=== PATIENT | female | born 1930 | race Caucasian/White ===

== ENCOUNTER 2017-10-26 04:14 | Observation (INO) | payer MEDICARE ==
[~2017-10-26] VITALS: Ht 152.4 cm; Wt 50.0 kg
[2017-10-26] VITALS (15 sets, daily range): BP systolic 120–192; BP diastolic 57–86; PULSE 67–98; RESP 18–26; TEMP 98–98.3; O2SAT 90–98
[2017-10-26] MEDS ORDERED: VESI5TAB2 PO (04:21)
[2017-10-26] MEDS ORDERED: ASPI81CH6 PO (04:21)
[2017-10-26] MEDS ORDERED: ENAL5TAB PO (04:21)
[2017-10-26] MEDS ORDERED: RESP: ALBUTEROL 2.5 MG/IPRATROPIUM 0.5 MG NEB (SCH) INH ONE (04:30)
[2017-10-26 04:31] LABS: BASOPHIL # 0.1 TH/MM3 (0-0.2); BASOPHIL % 1.1 % (0.0-2.0); EOSINOPHIL # 1.2 TH/MM3 (0-0.4); EOSINOPHIL % 15.4 % (0.0-4.0); HEMATOCRIT 34.5 % (35.0-46.0); HEMOGLOBIN 11.3 GM/DL (11.6-15.3); LYMPH % 23.3 % (9.0-44.0); LYMPHOCYTE # 1.8 TH/MM3 (1.0-4.8); MEAN CELL VOLUME 95.4 FL (80.0-100.0); MEAN CORPUSCULAR HEMOGLOBIN 31.3 PG (27.0-34.0); MEAN CORPUSCULAR HGB CONC 32.8 % (32.0-36.0); MONO % 7.1 % (0.0-8.0); MONOCYTE # 0.5 TH/MM3 (0-0.9); NEUT % 53.1 % (16.0-70.0); PLATELET COUNT 218 TH/MM3 (150-450); RED BLOOD COUNT 3.62 MIL/MM3 (4.00-5.30); RED CELL DISTRIBUTION WIDTH 14.3 % (11.6-17.2); WHITE BLOOD COUNT 7.5 TH/MM3 (4.0-11.0)
--- NOTE | 2017-10-26 04:43 | PD ---
HPI Chief Complaint: Respiratory Symptoms Time Seen by Provider: 04:19 Travel History International Travel<30 days: No Contact w/Intl Traveler<30days: No Traveled to known affect area: No History of Present Illness HPI pt is having SOB wheezing is visiting from [facility] , feels shaky anxiety , was given and Neb in route, EMS found her to be desaturating to 90 % on RA . PT IS POOR HISTORAIN, SEEMS possible some dementia process involved, She keeps complaining she is cold. Denies dysuria no diarrhea, but seems not very clear about my questions or her answers PFSH Past Medical History COPD: Yes Hypertension: Yes Myocardial Infarction: Yes (15 yrs ago ) Tetanus Vaccination: < 5 Years Influenza Vaccination: Yes ?: Not Past Surgical History Other Surgery: Yes (polyps 15 yrs ago) Social History Alcohol Use: No Tobacco Use: No Substance Use: No Allergies-Medications (Allergen,Severity, Reaction): Coded Allergies: No Known Allergies (Verified Allergy, Unknown, 10/26/17) Reported Meds & Prescriptions Reported Meds & Active Scripts Active Reported Enalapril (Enalapril Maleate) 5 Mg Tab 5 Mg PO DAILY Aspirin Low Dose (Aspirin) 81 Mg Chew 81 Mg PO DAILY Vesicare (Solifenacin) 5 Mg Tab 5 Mg PO DAILY Review of Systems Except as stated in HPI: all other systems reviewed are Neg Respiratory: Positive: Shortness of Breath, Wheezing Physical Exam Narrative GENERAL: shaking and increased RR no significant resp distress noted talking in full sentences SKIN: Warm and dry. HEAD: Atraumatic. Normocephalic. EYES: Pupils equal and round. No scleral icterus. No injection or drainage. ENT: No nasal bleeding or discharge. Mucous membranes pink and moist. NECK: Trachea midline. No JVD. CARDIOVASCULAR: Regular rate and rhythm. RESPIRATORY: No accessory muscle use. very faint expiratory wheeze. moving air well. GASTROINTESTINAL: Abdomen soft, non-tender, nondistended. Hepatic and splenic margins not palpable. MUSCULOSKELETAL: Extremities without clubbing, cyanosis, or edema. No obvious deformities. NEUROLOGICAL: Awake and alert. No obvious cranial nerve deficits. Motor grossly within normal limits. Five out of 5 muscle strength in the arms and legs. Normal speech. PSYCHIATRIC: Appropriate mood and affect; insight and judgment normal. Data Data Last Documented VS Vital Signs Date Time Temp Pulse Resp B/P (MAP) Pulse Ox O2 Delivery O2 Flow Rate FiO2 10/26/17 05:35 90 Room Air 10/26/17 05:35 76 20 2.00 10/26/17 04:18 98.1 10/26/17 04:15 21 Orders Orders Electrocardiogram (10/26/17 04:19) Complete Blood Count With Diff (10/26/17 04:19) Comprehensive Metabolic Panel (10/26/17 04:19) Chest, Pa & Lat (10/26/17 04:19) Ecg Monitoring (10/26/17 04:19) Iv Access Insert/Monitor (10/26/17 04:19) Oximetry (10/26/17 04:19) Oxygen Administration (10/26/17 04:19) Albuterol-Ipratropium Neb (Duoneb Neb) (10/26/17 04:30) Sodium Chloride 0.9% Flush (Ns Flush) (10/26/17 04:30) Admit Order (Ed Use Only) (10/26/17 05:36) Levofloxacin 750 Mg Premix Inj (Levaquin (10/26/17 05:45) Prednisone (Deltasone) (10/26/17 05:45) Labs Laboratory Tests Test 10/26/17 04:20 White Blood Count 7.5 TH/MM3 Red Blood Count 3.62 MIL/MM3 Hemoglobin 11.3 GM/DL Hematocrit 34.5 % Mean Corpuscular Volume 95.4 FL Mean Corpuscular Hemoglobin 31.3 PG Mean Corpuscular Hemoglobin Concent 32.8 % Red Cell Distribution Width 14.3 % Platelet Count 218 TH/MM3 Mean Platelet Volume 9.0 FL Neutrophils (%) (Auto) 53.1 % Lymphocytes (%) (Auto) 23.3 % Monocytes (%) (Auto) 7.1 % Eosinophils (%) (Auto) 15.4 % Basophils (%) (Auto) 1.1 % Neutrophils # (Auto) 4.0 TH/MM3 Lymphocytes # (Auto) 1.8 TH/MM3 Monocytes # (Auto) 0.5 TH/MM3 Eosinophils # (Auto) 1.2 TH/MM3 Basophils # (Auto) 0.1 TH/MM3 CBC Comment DIFF FINAL Differential Comment Blood Urea Nitrogen 15 MG/DL Creatinine 0.87 MG/DL Random Glucose 82 MG/DL Total Protein 7.0 GM/DL Albumin 3.2 GM/DL Calcium Level 9.7 MG/DL Alkaline Phosphatase 72 U/L Aspartate Amino Transf (AST/SGOT) 24 U/L Alanine Aminotransferase (ALT/SGPT) 18 U/L Total Bilirubin 0.3 MG/DL Sodium Level 143 MEQ/L Potassium Level 4.1 MEQ/L Chloride Level 108 MEQ/L Carbon Dioxide Level 28.9 MEQ/L Anion Gap 6 MEQ/L Estimat Glomerular Filtration Rate 61 ML/MIN 25-Hydroxy Vitamin D Total 41.5 ng/ML MDM Medical Decision Making Medical Screen Exam Complete: Yes Emergency Medical Condition: Yes Differential Diagnosis COPD exacerbation vs URI --> to COPD exacerbation, viral illness influ strep pharyngitis . asthma reactive airway disease . other Narrative Course pt has mild COPD exacerbation either from severely cold environmental weather or URI needs steroid and levaqquin and admit until O2 sat and RR improve Diagnosis Primary Impression: Dyspnea Qualified Codes: R06.00 - Dyspnea, unspecified Additional Impression: COPD exacerbation Admitting Information Admitting Physician Requests: Observation Scripts Walker with Front Wheels (Walker with Front Wheels) 1 Mis Mis EA .ROUTE DIRECTED, #1 0 Refills Prov: Isis Machuca 10/27/17 Geoff Gomez MD Oct 26, 2017 04:43
[2017-10-26 04:45] LABS: ALBUMIN 3.2 GM/DL (3.4-5.0); ALT (GPT) 18 U/L (10-53); AST (GOT) 24 U/L (15-37); BICARBONATE 28.9 MEQ/L (21.0-32.0); BLOOD UREA NITROGEN 15 MG/DL (7-18); CALCIUM 9.7 MG/DL (8.5-10.1); CHLORIDE 108 MEQ/L (98-107); CREATININE 0.87 MG/DL (0.50-1.00); GLOMERULAR FILTRATION RATE 61 ML/MIN (>89); GLUCOSE,RANDOM 82 MG/DL (74-106); SODIUM (NA) 143 MEQ/L (136-145)
[2017-10-26 04:48] LABS: ALKALINE PHOSPHATASE 72 U/L (45-117); TOTAL BILIRUBIN ADULT 0.3 MG/DL (0.2-1.0)
--- NOTE | 2017-10-26 05:00 | RADRPT ---
EXAM DATE/TIME: 10/26/2017 04:28 [place] COMPARISON: No previous studies available for comparison. INDICATIONS : Short of breath. MEDICAL HISTORY : Chronic obstructive pulmonary disease. Myocardial infarction. Hypertension. SURGICAL HISTORY : None. ENCOUNTER: Initial ACUITY: 1 day PAIN SCORE: 0/10 LOCATION: Bilateral chest FINDINGS: PA and lateral views of the chest demonstrate the lungs to be symmetrically aerated without evidence of mass, infiltrate or effusion. Some chronic interstitial changes. The cardiomediastinal contours a re unremarkable. An age-indeterminate upper thoracic spine vertebral compression fractures at 2 level s. Diffuse degenerative changes. CONCLUSION: 1. Chronic interstitial changes. Darci Robbins Jr., MD on October 26, 2017 at 4:58 Board Certified Radiologist. This report was verified electronically.
[2017-10-26] MEDS ORDERED: BISACODYL 10 MG SUPP RECTAL PRN (05:45)
[2017-10-26] MEDS ORDERED: predniSONE 20 MG TAB PO ONE (05:45)
[2017-10-26] MEDS ORDERED: ACETAMINOPHEN/HYDROcodone 325 MG/5 MG TAB PO PRN (05:45)
[2017-10-26] MEDS ORDERED: SENNOSIDES 8.6 MG TAB PO PRN (05:45)
[2017-10-26] MEDS ORDERED: NALOXONE HCL 0.4 MG/ML AMP IV PUSH PRN (05:45)
[2017-10-26] MEDS ORDERED: ONDANSETRON HCL 4 MG/2 ML VIAL IVP PRN (05:45)
[2017-10-26] MEDS ORDERED: MAGNESIUM HYDROXIDE SUSP 30 ML CUP PO PRN (05:45)
[2017-10-26] MEDS ORDERED: LEVOFLOXACIN 750 MG PREMIX INJ 150 ML IV ONE (05:45)
[2017-10-26] MEDS ORDERED: LACTULOSE SYRUP 20 GM/30 ML CUP PO PRN (05:45)
[2017-10-26] MEDS ORDERED: ACETAMINOPHEN 325 MG TAB PO PRN (05:45)
[2017-10-26] MEDS ORDERED: methylPREDNISolone SOD SUCC 40 MG/1 ML VIAL IV PUSH SCH (06:00)
[2017-10-26] MEDS: ENOXAPARIN SODIUM 40 MG/0.4 ML SYRINGE SQ SCH (06:04)
[2017-10-26 06:11] LABS: BILIRUBIN, URINE NEG (NEG); BLOOD, URINE NEG (NEG); GLUCOSE,URINE NEG (NEG); KETONE, URINE NEG (NEG); MUCUS URINE FEW /lpf (OCC); NITRITE,URINE NEG (NEG); URINE COLOR LIGHT-YELLOW (YELLW/STRAW); URINE LEUKOCYTE ESTERASE NEG (NEG)
--- NOTE | 2017-10-26 06:21 | HHI.HP ---
[facility]-Staff Admission Diagnosis COPD exacerbation Diagnoses: Travel History International Travel<30 Days: No Contact w/Intl Traveler <30 Da: No Traveled to Known Affected Are: No History of Present Illness 87-year-old female with a past medical history significant for hypertension and possibly COPD (patient states she may have previously been diagnosed with COPD) presents to the emergency department with increasing shortness of breath. The patient reports that approximately one week ago she caught a cold. She endorses subjective fever/chills. She has an unrelenting nonproductive cough. The patient reports that she has just not been able to catch her breath and came to the emergency department for further evaluation. She had a similar episode approximately one and a half years ago requiring hospitalization and she was discharged with nebulizer treatments. No leukocytosis. Afebrile. Respiratory rate 26 on arrival. Oxygen saturation decreased to 90% when patient placed on room air. Chest x-ray showed chronic interstitial changes without acute process. Review of Systems Subjective fever/chills Denies blurry vision, otorrhea, rhinorrhea Denies sore throat, positive cough No chest pain, palpitations, Positive shortness of breath No abdominal pain Denies constipation/diarrhea/nausea/vomiting Denies muscle pain/weakness No rashes Past Family Social History Past Medical History ?COPD HTN Past Surgical History None Reported Medications Reported Meds & Active Scripts Active Reported Enalapril (Enalapril Maleate) 5 Mg Tab 5 Mg PO DAILY Aspirin Low Dose (Aspirin) 81 Mg Chew 81 Mg PO DAILY Vesicare (Solifenacin) 5 Mg Tab 5 Mg PO DAILY Allergies: Coded Allergies: No Known Allergies (Verified Allergy, Unknown, 10/26/17) Family History No family history of DM/CAD Social History Never smoker. No EtOH/illicit drugs. Physical Exam Vital Signs Vital Signs Date Time Temp Pulse Resp B/P (MAP) Pulse Ox O2 Delivery O2 Flow Rate FiO2 10/26/17 05:35 90 Room Air 10/26/17 05:35 76 20 162/69 (100) 98 Nasal Cannula 2.00 10/26/17 04:41 96 Nasal Cannula 1.00 1/4/18 04:21 98 Nasal Cannula 2.00 10/26/17 04:21 98 Nasal Cannula 2.00 10/26/17 04:18 98.1 75 26 192/86 (121) 97 Room Air 10/26/17 04:15 96 21 Physical Exam GENERAL: female lying in bed SKIN: No rashes, ecchymoses or lesions. Cool and dry. HEAD: Atraumatic. Normocephalic. No temporal or scalp tenderness. EYES: Pupils equal round and reactive. Extraocular motions intact. No scleral icterus. No injection or drainage. ENT: Nose without bleeding, purulent drainage or septal hematoma. Throat without erythema, tonsillar hypertrophy or exudate. Uvula midline. Airway patent. NECK: Trachea midline. No JVD or lymphadenopathy. Supple, nontender, no meningeal signs. CARDIOVASCULAR: Regular rate and rhythm without murmurs, gallops, or rubs. RESPIRATORY: Wheezing throughout. GASTROINTESTINAL: Abdomen soft, non-tender, nondistended. No hepato-splenomegaly , or palpable masses. No guarding. MUSCULOSKELETAL: Extremities without clubbing, cyanosis, or edema. No joint tenderness, effusion, or edema noted. No calf tenderness. NEUROLOGICAL: Awake and alert. Cranial nerves II through XII intact. Motor and sensory grossly within normal limits. Normal speech. Laboratory Laboratory Tests Test 10/26/17 04:20 White Blood Count 7.5 Red Blood Count 3.62 Hemoglobin 11.3 Hematocrit 34.5 Mean Corpuscular Volume 95.4 Mean Corpuscular Hemoglobin 31.3 Mean Corpuscular Hemoglobin Concent 32.8 Red Cell Distribution Width 14.3 Platelet Count 218 Mean Platelet Volume 9.0 Neutrophils (%) (Auto) 53.1 Lymphocytes (%) (Auto) 23.3 Monocytes (%) (Auto) 7.1 Eosinophils (%) (Auto) 15.4 Basophils (%) (Auto) 1.1 Neutrophils # (Auto) 4.0 Lymphocytes # (Auto) 1.8 Monocytes # (Auto) 0.5 Eosinophils # (Auto) 1.2 Basophils # (Auto) 0.1 CBC Comment DIFF FINAL Differential Comment Blood Urea Nitrogen 15 Creatinine 0.87 Random Glucose 82 Total Protein 7.0 Albumin 3.2 Calcium Level 9.7 Alkaline Phosphatase 72 Aspartate Amino Transf (AST/SGOT) 24 Alanine Aminotransferase (ALT/SGPT) 18 Total Bilirubin 0.3 Sodium Level 143 Potassium Level 4.1 Chloride Level 108 Carbon Dioxide Level 28.9 Anion Gap 6 Estimat Glomerular Filtration Rate 61 Result Diagram: 10/26/1741910/26/17419 Caprini VTE Risk Assessment Caprini VTE Risk Assessment: Mod/High Risk (score >= 2) Caprini Risk Assessment Model Point Value = 1 Point Value = 2 Point Value = 3 Point Value = 5 Age 41-60 Minor surgery BMI > 25 kg/m2 Swollen legs Varicose veins or History of unexplained or recurrent spontaneous Oral contraceptives or hormone replacement Sepsis (< 1 month) Serious lung disease, including pneumonia (< 1 month) Abnormal pulmonary function Acute myocardial infarction Congestive heart failure (< 1 month) History of inflammatory bowel disease Medical patient at bed rest Age 61-74 Arthroscopic surgery Major open surgery (> 45 min) Laparoscopic surgery (> 45 min) Malignancy Confined to bed (> 72 hours) Immobilizing plaster cast Central venous access Age >= 75 History of VTE Family history of VTE Factor V Leiden Prothrombin [id number] Lupus anticoagulant Anticardiolipin antibodies Elevated serum homocysteine Heparin-induced thrombocytopenia Other congenital or acquired thrombophilia Stroke (< 1 month) Elective arthroplasty Hip, pelvis, or leg fracture Acute spinal cord injury (< 1 month) Prophylaxis Regimen Total Risk Factor Score Risk Level Prophylaxis Regimen 0-1 Low Early ambulation 2 Moderate Order ONE of the following: *Sequential Compression Device (SCD) *Heparin 5000 units SQ BID 3-4 Higher Order ONE of the following medications: *Heparin 5000 units SQ TID *Enoxaparin/Lovenox 40 mg SQ daily (WT < 150 kg, CrCl > 30 mL/min) *Enoxaparin/Lovenox 30 mg SQ daily (WT < 150 kg, CrCl > 10-29 mL/min) *Enoxaparin/Lovenox 30 mg SQ BID (WT < 150 kg, CrCl > 30 mL/min) AND/OR *Sequential Compression Device (SCD) 5 or more Highest Order ONE of the following medications: *Heparin 5000 units SQ TID (Preferred with Epidurals) *Enoxaparin/Lovenox 40 mg SQ daily (WT < 150 kg, CrCl > 30 mL/min) *Enoxaparin/Lovenox 30 mg SQ daily (WT < 150 kg, CrCl > 10-29 mL/min) *Enoxaparin/Lovenox 30 mg SQ BID (WT < 150 kg, CrCl > 30 mL/min) AND *Sequential Compression Device (SCD) Assessment and Plan Assessment and Plan Assessment/Plan: 1. COPD exacerbation Patient with increased cough and subjective fever/chills Chest x-ray significant for chronic interstitial changes, images reviewed by me Kamala wolf Solu-Medrol Submental oxygen when necessary 2. HTN Continue home Lisinopril FEN Heart healthy diet Electrolytes: monitor and replete prn Yolette Egan MD Oct 26, 2017 06:21
[2017-10-26] MEDS: RESP: ALBUTEROL 2.5 MG/IPRATROPIUM 0.5 MG NEB (SCH) NEB ×4 (08:16→19:34)
[2017-10-26] MEDS: SODIUM CHLORIDE 0.9% FLUSH 10 ML FLUSH IV FLUSH SCH ×2 (09:00→22:20)
[2017-10-26] MEDS ORDERED: NON-FORMULARY DRUG (Solifenacin (Vesicare) 5 MG) PO SCH (09:00)
--- NOTE | 2017-10-26 10:01 | HHI.PR ---
Subjective Remarks Follow up on patient with dyspnea. Patient seen and examined. Patient reports her breathing is better now. She denies any previous history of COPD diagnosis. States she's never smoked in her life. She reports that today after she developed a cold with nonproductive cough and diffuse body aches. She denies any fevers at home but states she felt cold all the time. She denies any associated headache, ear pain, rhinorrhea, chest pain, nausea, vomiting or abdominal pain. She states she did have shortness of breath with cough exacerbations. She does not use oxygen at home. She denies any history of allergies. Objective Vitals Vital Signs Date Time Temp Pulse Resp B/P (MAP) Pulse Ox O2 Delivery O2 Flow Rate FiO2 10/26/17 08:29 98.1 72 18 147/67 (93) 98 10/26/17 08:16 97 Nasal Cannula 1.00 10/26/17 07:02 71 18 142/64 (90) 98 10/26/17 06:11 10/26/17 06:11 67 18 155/75 (101) 98 Nasal Cannula 2.00 10/26/17 05:35 90 Room Air 10/26/17 05:35 76 20 162/69 (100) 98 Nasal Cannula 2.00 10/26/17 04:41 96 Nasal Cannula 1.00 10/26/17 04:21 98 Nasal Cannula 2.00 10/26/17 04:21 98 Nasal Cannula 2.00 10/26/17 04:18 98.1 75 26 192/86 (121) 97 Room Air 10/26/17 04:15 96 21 I/O 10/25/17 10/25/17 10/25/17 10/26/17 10/26/17 10/26/17 07:00 15:00 23:00 07:00 15:00 23:00 Intake Total 150 ml Balance 150 ml Intake IV Total 150 ml Result Diagram: 10/26/1741910/26/17419 Imaging Last Impressions Chest X-Ray 10/26/17 0419 Signed Impressions: Service Date/Time: October 04:28 - CONCLUSION: 1. Chronic interstitial changes. Darci Robbins Jr., MD Objective Remarks GENERAL: Well-developed well-nourished elderly female lying in bed. Awake and alert. Sitting up in bed eating breakfast. SKIN: Cool and dry. HEAD: Atraumatic. Normocephalic. EYES: Extraocular motions intact. No scleral icterus. No injection or drainage. ENT: Nose without bleeding or purulent drainage. Airway patent. MMM. NECK: Trachea midline. CARDIOVASCULAR: Tachycardic with regular rhythm without murmurs, gallops, or rubs. RESPIRATORY: Tight air entry. Mild expiratory wheezing appreciated. GASTROINTESTINAL: Abdomen soft, non-tender, nondistended. No hepato-splenomegaly , or palpable masses. No guarding. MUSCULOSKELETAL: Extremities without clubbing, cyanosis, or edema. No calf tenderness. NEUROLOGICAL: Awake and alert. Able to move all externally spontaneously. Nonfocal. Normal speech. Medications and IVs Current Medications Medications (Trade) Dose Ordered Sig/Jesica Route Start Time Stop Time Status Last Admin (NS Flush) 2 ml UNSCH PRN IVF 10/26/17 04:30 (NS Flush) 2 ml BID IV FLUSH 10/26/17 09:00 (Zofran Inj) 4 mg Q6H PRN IVP 10/26/17 05:45 (Lovenox Inj) 40 mg Q24H SQ 10/26/17 05:45 10/26/17 06:04 (Tylenol) 650 mg Q6H PRN PO 10/26/17 05:45 ([place] 5-325 Mg) 1 tab Q4H PRN PO 10/26/17 05:45 (Narcan Inj) 0.4 mg UNSCH PRN IV PUSH 10/26/17 05:45 (Karely-Colace) 1 tab BID PO 10/26/17 09:00 (Milk Of Magnesia Liq) 30 ml Q12H PRN PO 10/26/17 05:45 (Senokot) 17.2 mg Q12H PRN PO 10/26/17 05:45 (Dulcolax Supp) 10 mg DAILY PRN RECTAL 10/26/17 05:45 (Lactulose Liq) 30 ml DAILY PRN PO 10/26/17 05:45 (SoluMEDROL INJ) 40 mg Q6HR IV PUSH 10/26/17 06:00 10/26/17 06:04 (Symbicort 160-4.5 Mcg Inh) 2 puff Q12HR INH 10/26/17 09:00 (Duoneb Neb) 1 ampule Q4HR WHILE AWAKE NEB NEB 10/26/17 08:00 10/26/17 08:16 (Duoneb Neb) 1 ampule Q2HR NEB PRN NEB 10/26/17 05:45 (Aspirin Chew) 81 mg DAILY PO 10/26/17 09:00 (Vasotec) 5 mg DAILY PO 10/26/17 09:00 Levofloxacin/ Dextrose 150 ml @ 100 mls/hr Q24H IV 10/27/17 09:00 (Tessalon) 100 mg TID PO 10/26/17 09:00 (Mucinex Er) 600 mg BID PO 10/26/17 09:00 (Detrol La) 2 mg DAILY PO 10/26/17 09:00 A/P Assessment and Plan 87yr old female with PMHX of HTN who presents to [facility] with complaints of nonproductive cough and dyspnea. URI with nonproductive cough and dyspnea, improving CXR reveals chronic interstitial changes, no acute process Continue on Levaquin, change to oral. Continue on IV methylprednisolone, changed to every 8 hour dosing, Likely taper to oral steroids tomorrow. Continue on scheduled DuoNeb's every 4 hours while awake Continue on Mucinex ER 600mg BID and Tessalon 100mg TID Influenza antigen ordered Incentive spirometry at bedside, encourage use Continue to monitor respiratory status - patient 91% on RA, 96% on 2L Patient may need a home oxygen walk test prior discharge PT eval/tx HTN Adequately controlled Continue on Vasotec 5 mg daily Monitor BP and adjust treatment accordingly Overactive bladder Continue patient on home dose of Vesicare Incidental finding of previous thoracic spine compression fractures on chest x- ray Patient has no complaints of back pain DVT prophylaxis Lovenox subcutaneous Discharge Planning Pending clinical improvement, likely discharge tomorrow Attending Statement patient was seen and examined today. 87 y/o female with questionable history of asthma presented to ER with worsening sob and wheezing. feels better today. continue with IV steroids and neb treatment. PT consulted. rest of assessment and plan as noted above. Isis Machuca Oct 26, 2017 10:01 Alonzo Carmona MD Oct 26, 2017 10:58
[2017-10-26] MEDS: TOLTERODINE TARTRATE 2 MG CAP LA PO SCH (10:54)
[2017-10-26] MEDS: BENZONATATE 100 MG CAP PO SCH ×3 (10:54→18:39)
[2017-10-26] MEDS: ASPIRIN 81 MG CHEW TAB PO SCH (10:55)
[2017-10-26] MEDS: guaiFENesin E.R. 600 MG TAB PO SCH ×2 (10:55→22:20)
[2017-10-26] MEDS: ENALAPRIL MALEATE 5 MG TAB PO SCH (10:55)
[2017-10-26] MEDS: DOCUSATE SODIUM 50 MG/SENNA 8.6 MG TAB PO SCH ×2 (10:56→22:20)
[2017-10-26] MEDS: BUDESONIDE-FORMOTEROL 160/4.5 MCG INHALER INH SCH ×2 (12:06→22:20)
[2017-10-26] MEDS: methylPREDNISolone SOD SUCC 40 MG/1 ML VIAL IV PUSH SCH ×2 (16:20→22:21)
[2017-10-27] VITALS (11 sets, daily range): BP systolic 81–160; BP diastolic 48–70; PULSE 63–119; RESP 17–20; TEMP 97.8–99.2; O2SAT 93–98
[2017-10-27] MEDS: methylPREDNISolone SOD SUCC 40 MG/1 ML VIAL IV PUSH SCH ×3 (05:48→22:41)
[2017-10-27] MEDS: ENOXAPARIN SODIUM 40 MG/0.4 ML SYRINGE SQ SCH (05:49)
[2017-10-27] MEDS: SODIUM CHLORIDE 0.9% FLUSH 10 ML FLUSH IVF PRN (05:49)
[2017-10-27] MEDS: RESP: ALBUTEROL 2.5 MG/IPRATROPIUM 0.5 MG NEB (PRN) NEB (06:01)
[2017-10-27 07:33] LABS: AUTOMATED NEUTROPHIL # 6.9 TH/MM3 (1.8-7.7); BASOPHIL % 0.1 % (0.0-2.0); HEMATOCRIT 34.6 % (35.0-46.0); HEMOGLOBIN 11.5 GM/DL (11.6-15.3); LYMPH % 8.2 % (9.0-44.0); LYMPHOCYTE # 0.6 TH/MM3 (1.0-4.8); MEAN CELL VOLUME 94.9 FL (80.0-100.0); MEAN CORPUSCULAR HEMOGLOBIN 31.5 PG (27.0-34.0); MEAN CORPUSCULAR HGB CONC 33.2 % (32.0-36.0); MEAN PLATELET VOLUME 10.1 FL (7.0-11.0); MONO % 2.1 % (0.0-8.0); MONOCYTE # 0.2 TH/MM3 (0-0.9); NEUT % 89.6 % (16.0-70.0); PLATELET COUNT 233 TH/MM3 (150-450); RED BLOOD COUNT 3.64 MIL/MM3 (4.00-5.30); RED CELL DISTRIBUTION WIDTH 14.3 % (11.6-17.2); WHITE BLOOD COUNT 7.7 TH/MM3 (4.0-11.0)
[2017-10-27] MEDS ORDERED: WALKER WHEELS/F1 MIS (07:35)
[2017-10-27] MEDS: RESP: ALBUTEROL 2.5 MG/IPRATROPIUM 0.5 MG NEB (SCH) NEB ×4 (07:39→20:29)
--- NOTE | 2017-10-27 07:40 | HHI.FF ---
Face to Face Verification Diagnosis: (1) Impaired mobility and activities of daily living (2) Interstitial lung disease (3) Dyspnea Physical Therapy Order: Evaluate and Treat, Improve ambulation, Strength and gait training I have seen patient Virginia Cuba on 10/27/17. My clinical findings support the need for the requested home health care services because: Patient has SOB Deconditioned w/ increased weakness Limited ability to care for self High risk of falls I certify that my clinical findings support that this patient is homebound because: Unsteady gait/balance Unsafe to leave home unassisted Unable to use public transportation Isis Machuca Oct 27, 2017 07:40
[2017-10-27 07:49] LABS: BICARBONATE 28.2 MEQ/L (21.0-32.0); CALCIUM 9.9 MG/DL (8.5-10.1); CREATININE 1.12 MG/DL (0.50-1.00)
[2017-10-27] MEDS: ENALAPRIL MALEATE 5 MG TAB PO SCH (08:28)
[2017-10-27] MEDS: guaiFENesin E.R. 600 MG TAB PO SCH ×2 (08:28→22:41)
[2017-10-27] MEDS: DOCUSATE SODIUM 50 MG/SENNA 8.6 MG TAB PO SCH ×2 (08:28→22:41)
[2017-10-27] MEDS: BENZONATATE 100 MG CAP PO SCH ×3 (08:28→16:22)
[2017-10-27] MEDS: TOLTERODINE TARTRATE 2 MG CAP LA PO SCH (08:28)
[2017-10-27] MEDS: LEVOFLOXACIN 750 MG TAB PO SCH (08:28)
[2017-10-27] MEDS: ASPIRIN 81 MG CHEW TAB PO SCH (08:29)
[2017-10-27] MEDS: BUDESONIDE-FORMOTEROL 160/4.5 MCG INHALER INH SCH ×2 (08:29→22:43)
[2017-10-27] MEDS: SODIUM CHLORIDE 0.9% FLUSH 10 ML FLUSH IV FLUSH SCH ×2 (08:32→22:40)
[2017-10-27] MEDS ORDERED: LEVOFLOXACIN 750 MG PREMIX INJ 150 ML IV SCH (09:00)
--- NOTE | 2017-10-27 13:04 | HHI.PR ---
Subjective Remarks in no acute distress. however still with sob and cough. on oxygen via [place] afebrile. Objective Vitals Vital Signs Date Time Temp Pulse Resp B/P (MAP) Pulse Ox O2 Delivery O2 Flow Rate FiO2 10/27/17 12:02 99.2 119 18 81/48 (59) 93 10/27/17 08:13 97.9 95 20 139/69 (92) 96 10/27/17 08:00 83 10/27/17 07:40 98 Nasal Cannula 2.00 10/27/17 06:01 98 Nasal Cannula 2.00 10/27/17 04:41 98.0 82 18 160/70 (100) 94 10/27/17 04:35 63 10/27/17 00:05 75 10/26/17 21:18 98.0 92 18 120/57 (78) 91 10/26/17 20:00 98 10/26/17 19:35 94 21 10/26/17 15:54 98.0 75 18 145/65 (91) 96 I/O 10/26/17 10/26/17 10/26/17 10/27/17 10/27/17 10/27/17 07:00 15:00 23:00 07:00 15:00 23:00 Intake Total 150 ml 240 ml 120 ml Balance 150 ml 240 ml 120 ml Intake Oral 240 ml 120 ml IV Total 150 ml # Voids 1 # Bowel Movements 1 Result Diagram: 10/27/17 0637 10/27/17 0637 Imaging Last Impressions Chest X-Ray 10/26/17 0419 Signed Impressions: Service Date/Time: October 04:28 - CONCLUSION: 1. Chronic interstitial changes. Darci Robbins Jr., MD Objective Remarks GENERAL: elderly female, in no apparent distress. CARDIOVASCULAR: Regular rate and regular rhythm without murmurs, gallops, or rubs. RESPIRATORY: bilateral wheezing. GASTROINTESTINAL: Abdomen soft, non-tender, nondistended. Normal, active bowel sounds MUSCULOSKELETAL: Extremities without clubbing, cyanosis, or edema. NEURO: Alert & Oriented x4 to person, place, time, situation. Moves all ext x4 Medications and IVs Inpatient Medications Acetaminophen (Tylenol) 650 mg Q6H PRN PO headache/fever/pain1-2; Start at 05:45 Acetaminophen/ Hydrocodone Bitart ([place] 5-325 Mg) 1 tab Q4H PRN PO PAIN SCALE 3 TO 10; Start 10/26/17 at 05:45 Albuterol/ Ipratropium (Duoneb Neb) 1 ampule Q2HR NEB PRN NEB SOB/wheezing Last administered on 10/27/17 06:01; Start 10/26/17 at 05:45 Aspirin (Aspirin Chew) 81 mg DAILY PO Last administered on 10/27/17at 08:29; Start 10/26/17 at 09:00 Benzonatate (Tessalon) 100 mg TID PO Last administered on 10/27/17 08:28; Start 10/26/17 at 09:00 Bisacodyl (Dulcolax Supp) 10 mg DAILY PRN RECTAL SEVERE CONSITIPATION; Start at 05:45 Budesonide/ Formoterol Fumarate (Symbicort 160-4.5 Mcg Inh) 2 puff Q12HR INH Last administered on 10/27/17at 08:29; Start 10/26/17 at 09:00 Enalapril Maleate (Vasotec) 5 mg DAILY PO Last administered on 10/27/17 08:28; Start 10/26/17 at 09:00 Enoxaparin Sodium (Lovenox Inj) 40 mg Q24H SQ Last administered on 10/27/17at 05: 49; Start 10/26/17 at 05:45 Guaifenesin (Mucinex Er) 600 mg BID PO Last administered on 10/27/17 08:28; Start 10/26/17 at 09:00 Lactulose (Lactulose Liq) 30 ml DAILY PRN PO SEVERE CONSITIPATION; Start at 05:45 Levofloxacin (Levaquin) 750 mg Q48H PO Last administered on 10/27/17at 08:28; Start 10/27/17 at 09:00 Levofloxacin/ Dextrose 150 ml @ 100 mls/hr Q24H IV ; Start 10/27/17 at 09:00; Stop 10/27/17 at 09:00; Status DC Magnesium Hydroxide (Milk Of Magnesia Liq) 30 ml Q12H PRN PO Mild constipation ; Start 10/26/17 at 05:45 Methylprednisolone Sodium Succinate (SoluMEDROL INJ) 40 mg Q8HR IV PUSH Last administered on 10/27/17at 05:48; Start 10/26/17 at 14:00 Naloxone HCl (Narcan Inj) 0.4 mg UNSCH PRN IV PUSH SEE LABEL COMMENTS; Start at 05:45 Ondansetron HCl (Zofran Inj) 4 mg Q6H PRN IVP NAUSEA OR VOMITING; Start at 05:45 Prednisone (Deltasone) 40 mg ONCE ONCE PO ; Start 10/26/17 at 05:45; Stop at 05:45; Status DC Senna/Docusate Sodium (Karely-Colace) 1 tab BID PO Last administered on 10/27/17at 08:28; Start 10/26/17 at 09:00 Sennosides (Senokot) 17.2 mg Q12H PRN PO Moderate constipation; Start 10/26/17 at 05:45 Sodium Chloride (NS Flush) 2 ml BID IV FLUSH Last administered on 10/27/17at 08: 32; Start 10/26/17 at 09:00 Tolterodine Tartrate (Detrol La) 2 mg DAILY PO Last administered on 10/27/17at 08 :28; Start 10/26/17 at 09:00 A/P Assessment and Plan A/P URI with nonproductive cough and dyspnea, improving CXR reveals chronic interstitial changes, no acute process Continue on Levaquin, changed to oral. will keep on IV methylprednisolone, Likely taper to oral steroids tomorrow. Continue on scheduled DuoNeb's every 4 hours while awake Continue on Mucinex ER 600mg BID and Tessalon 100mg TID Influenza antigen negative. Incentive spirometry at bedside, encourage use Continue to monitor respiratory status - patient 91% on RA, 96% on 2L Patient may need a home oxygen walk test prior discharge PT eval/tx HTN Adequately controlled Continue on Vasotec 5 mg daily Monitor BP and adjust treatment accordingly Overactive bladder Continue patient on home dose of Vesicare Incidental finding of previous thoracic spine compression fractures on chest x- ray Patient has no complaints of back pain DVT prophylaxis Lovenox subcutaneous Discharge Planning dc home within the next one-two days if clinically improves. walk test before discharge. will have [facility]. Alonzo Carmona MD Oct 27, 2017 13:04
--- NOTE | 2017-10-27 23:22 | EKG ---
Date Performed: 10/26/2017 Time Performed: 04:18:41 PTAGE: 87 years EKG: Sinus rhythm INFERIOR MYOCARDIAL INFARCTION ABNORMAL ECG NO PREVIOUS TRACING DOCTOR: Safia Fragoso Interpretating Date/Time 10/27/2017 23:20:28
[2017-10-28] VITALS (8 sets, daily range): BP systolic 122–166; BP diastolic 58–77; PULSE 68–97; RESP 17–20; TEMP 96–98.1; O2SAT 97–99
[2017-10-28] MEDS: methylPREDNISolone SOD SUCC 40 MG/1 ML VIAL IV PUSH SCH ×3 (06:29→23:23)
[2017-10-28] MEDS: ENOXAPARIN SODIUM 30 MG/0.3 ML SYRINGE SQ SCH (06:29)
[2017-10-28] MEDS: SODIUM CHLORIDE 0.9% FLUSH 10 ML FLUSH IV FLUSH SCH ×2 (07:50→21:00)
[2017-10-28] MEDS: guaiFENesin E.R. 600 MG TAB PO SCH ×2 (07:52→23:28)
[2017-10-28] MEDS: DOCUSATE SODIUM 50 MG/SENNA 8.6 MG TAB PO SCH ×2 (07:52→23:28)
[2017-10-28] MEDS: ASPIRIN 81 MG CHEW TAB PO SCH (07:52)
[2017-10-28] MEDS: BENZONATATE 100 MG CAP PO SCH ×3 (07:52→18:16)
[2017-10-28] MEDS: ENALAPRIL MALEATE 5 MG TAB PO SCH (07:53)
[2017-10-28] MEDS: BUDESONIDE-FORMOTEROL 160/4.5 MCG INHALER INH SCH ×2 (08:07→23:28)
[2017-10-28] MEDS: RESP: ALBUTEROL 2.5 MG/IPRATROPIUM 0.5 MG NEB (SCH) NEB ×4 (08:17→19:43)
[2017-10-28] MEDS: TOLTERODINE TARTRATE 2 MG CAP LA PO SCH (08:37)
--- NOTE | 2017-10-28 12:57 | HHI.PR ---
Subjective Remarks in no acute distress. however still with some wheezing, sob and cough. although looks more comfortable than yesterday. no fever. Objective Vitals Vital Signs Date Time Temp Pulse Resp B/P (MAP) Pulse Ox O2 Delivery O2 Flow Rate FiO2 10/28/17 08:00 96.0 68 20 122/58 (79) 99 10/28/17 04:01 98.0 70 18 122/58 (79) 99 10/28/17 01:18 Nasal Cannula 2.00 10/28/17 00:14 98.1 85 18 140/68 (92) 97 10/27/17 20:29 95 Nasal Cannula 2.00 10/27/17 19:35 97.8 89 17 135/62 (86) 97 10/27/17 16:23 98.9 80 20 135/60 (85) 97 I/O 10/27/17 10/27/17 10/27/17 10/28/17 10/28/17 10/28/17 07:00 15:00 23:00 07:00 15:00 23:00 # Voids 1 Result Diagram: 10/27/17 0637 10/27/17 0637 Imaging Last Impressions Chest X-Ray 10/26/17 0419 Signed Impressions: Service Date/Time: October 04:28 - CONCLUSION: 1. Chronic interstitial changes. Darci Robbins Jr., MD Objective Remarks GENERAL: elderly female, in no apparent distress. CARDIOVASCULAR: Regular rate and regular rhythm without murmurs, gallops, or rubs. RESPIRATORY: bilateral wheezing. GASTROINTESTINAL: Abdomen soft, non-tender, nondistended. Normal, active bowel sounds MUSCULOSKELETAL: Extremities without clubbing, cyanosis, or edema. NEURO: Alert & Oriented x4 to person, place, time, situation. Moves all ext x4 Medications and IVs Inpatient Medications Acetaminophen (Tylenol) 650 mg Q6H PRN PO headache/fever/pain1-2; Start at 05:45 Acetaminophen/ Hydrocodone Bitart ([place] 5-325 Mg) 1 tab Q4H PRN PO PAIN SCALE 3 TO 10; Start 10/26/17 at 05:45 Albuterol/ Ipratropium (Duoneb Neb) 1 ampule Q2HR NEB PRN NEB SOB/wheezing Last administered on 10/27/17at 06:01; Start 10/26/17 at 05:45 Aspirin (Aspirin Chew) 81 mg DAILY PO Last administered on 10/28/17at 07:52; Start 10/26/17 at 09:00 Benzonatate (Tessalon) 100 mg TID PO Last administered on 10/28/17at 12:22; Start 10/26/17 at 09:00 Bisacodyl (Dulcolax Supp) 10 mg DAILY PRN RECTAL SEVERE CONSITIPATION; Start at 05:45 Budesonide/ Formoterol Fumarate (Symbicort 160-4.5 Mcg Inh) 2 puff Q12HR INH Last administered on 10/28/17at 08:07; Start 10/26/17 at 09:00 Enalapril Maleate (Vasotec) 5 mg DAILY PO Last administered on 10/28/17at 07:53; Start 10/26/17 at 09:00 Enoxaparin Sodium (Lovenox Inj) 30 mg Q24H SQ Last administered on 10/28/17at 06: 29; Start 10/28/17 at 06:00 Guaifenesin (Mucinex Er) 600 mg BID PO Last administered on 10/28/17at 07:52; Start 10/26/17 at 09:00 Lactulose (Lactulose Liq) 30 ml DAILY PRN PO SEVERE CONSITIPATION; Start at 05:45 Levofloxacin (Levaquin) 750 mg Q48H PO Last administered on 10/27/17at 08:28; Start 10/27/17 at 09:00 Levofloxacin/ Dextrose 150 ml @ 100 mls/hr Q24H IV ; Start 10/27/17 at 09:00; Stop 10/27/17 at 09:00; Status DC Magnesium Hydroxide (Milk Of Magnesia Liq) 30 ml Q12H PRN PO Mild constipation ; Start 10/26/17 at 05:45 Methylprednisolone Sodium Succinate (SoluMEDROL INJ) 40 mg Q8HR IV PUSH Last administered on 10/28/17at 06:29; Start 10/26/17 at 14:00 Naloxone HCl (Narcan Inj) 0.4 mg UNSCH PRN IV PUSH SEE LABEL COMMENTS; Start at 05:45 Ondansetron HCl (Zofran Inj) 4 mg Q6H PRN IVP NAUSEA OR VOMITING; Start at 05:45 Prednisone (Deltasone) 40 mg ONCE ONCE PO ; Start 10/26/17 at 05:45; Stop at 05:45; Status DC Senna/Docusate Sodium (Karely-Colace) 1 tab BID PO Last administered on 10/28/17at 07:52; Start 10/26/17 at 09:00 Sennosides (Senokot) 17.2 mg Q12H PRN PO Moderate constipation; Start 10/26/17 at 05:45 Sodium Chloride (NS Flush) 2 ml BID IV FLUSH Last administered on 10/28/17at 07: 50; Start 10/26/17 at 09:00 Tolterodine Tartrate (Detrol La) 2 mg DAILY PO Last administered on 10/28/17at 08 :37; Start 10/26/17 at 09:00 A/P Assessment and Plan A/P URI with nonproductive cough and dyspnea, improving CXR reveals chronic interstitial changes, no acute process Continue on Levaquin, changed to oral. will keep on IV methylprednisolone, Likely change to oral steroids tomorrow. Continue on scheduled DuoNeb's every 4 hours while awake Continue on Mucinex ER 600mg BID and Tessalon 100mg TID Influenza antigen negative. Incentive spirometry at bedside, encourage use Continue to monitor respiratory status - passed the walk test. PT eval/tx HTN Adequately controlled Continue on Vasotec 5 mg daily Monitor BP and adjust treatment accordingly Overactive bladder Continue patient on home dose of Vesicare Incidental finding of previous thoracic spine compression fractures on chest x- ray Patient has no complaints of back pain DVT prophylaxis Lovenox subcutaneous Discharge Planning dc home tomorrow with [facility]. Alonzo Carmona MD Oct 28, 2017 12:56
[2017-10-28] MEDS: SODIUM CHLORIDE 0.9% FLUSH 10 ML FLUSH IVF PRN (15:47)
[2017-10-29] VITALS (9 sets, daily range): BP systolic 118–177; BP diastolic 50–73; PULSE 63–88; RESP 16–20; TEMP 97.4–98.7; O2SAT 96–99
[2017-10-29] MEDS: RESP: ALBUTEROL 2.5 MG/IPRATROPIUM 0.5 MG NEB (PRN) NEB (03:09)
[2017-10-29] MEDS: methylPREDNISolone SOD SUCC 40 MG/1 ML VIAL IV PUSH SCH ×3 (05:35→22:28)
[2017-10-29] MEDS: ENOXAPARIN SODIUM 30 MG/0.3 ML SYRINGE SQ SCH (05:35)
[2017-10-29] MEDS: RESP: ALBUTEROL 2.5 MG/IPRATROPIUM 0.5 MG NEB (SCH) NEB ×4 (08:25→19:24)
--- NOTE | 2017-10-29 09:16 | HHI.PR ---
Subjective Remarks in no acute distress. sob and cough improving but she says that she's not feeling good enough to go home. has mild bilateral wheezing. afebrile. Objective Vitals Vital Signs Date Time Temp Pulse Resp B/P (MAP) Pulse Ox O2 Delivery O2 Flow Rate FiO2 10/29/17 08:27 99 Nasal Cannula 2.00 10/29/17 08:14 98.2 78 20 120/60 (80) 98 10/29/17 04:17 98.4 69 16 118/58 (78) 99 10/29/17 00:37 18 10/29/17 00:23 97.4 66 17 131/63 (85) 98 10/28/17 20:15 76 17 152/67 (95) 97 10/28/17 20:13 98 Nasal Cannula 2.00 10/28/17 16:00 97.0 73 20 129/63 (85) 99 10/28/17 12:00 96.5 97 20 166/77 (106) 97 I/O 10/28/17 10/28/17 10/28/17 10/29/17 10/29/17 10/29/17 07:00 15:00 23:00 07:00 15:00 23:00 Intake Total 4 ml 662 ml 200 ml Balance 4 ml 662 ml 200 ml Intake Oral 660 ml 200 ml IV Total 4 ml 2 ml # Voids 1 2 Result Diagram: 10/27/17 0637 10/27/17 0637 Other Results Imaging Last Impressions Chest X-Ray 10/26/17 0419 Signed Impressions: Service Date/Time: October 04:28 - CONCLUSION: 1. Chronic interstitial changes. Darci Robbins Jr., MD Objective Remarks GENERAL: elderly female, in no apparent distress. CARDIOVASCULAR: Regular rate and regular rhythm without murmurs, gallops, or rubs. RESPIRATORY: bilateral wheezing. GASTROINTESTINAL: Abdomen soft, non-tender, nondistended. Normal, active bowel sounds MUSCULOSKELETAL: Extremities without clubbing, cyanosis, or edema. NEURO: Alert & Oriented x4 to person, place, time, situation. Moves all ext x4 Medications and IVs Inpatient Medications Acetaminophen (Tylenol) 650 mg Q6H PRN PO headache/fever/pain1-2; Start at 05:45 Acetaminophen/ Hydrocodone Bitart ([place] 5-325 Mg) 1 tab Q4H PRN PO PAIN SCALE 3 TO 10 Last administered on 10/28/17 23:23; Start 10/26/17 at 05:45 Albuterol/ Ipratropium (Duoneb Neb) 1 ampule Q2HR NEB PRN NEB SOB/wheezing Last administered on 10/29/17 03:09; Start 10/26/17 at 05:45 Aspirin (Aspirin Chew) 81 mg DAILY PO Last administered on 10/28/17at 07:52; Start 10/26/17 at 09:00 Benzonatate (Tessalon) 100 mg TID PO Last administered on 10/28/17 18:16; Start 10/26/17 at 09:00 Bisacodyl (Dulcolax Supp) 10 mg DAILY PRN RECTAL SEVERE CONSITIPATION; Start at 05:45 Budesonide/ Formoterol Fumarate (Symbicort 160-4.5 Mcg Inh) 2 puff Q12HR INH Last administered on 10/28/17 23:28; Start 10/26/17 at 09:00 Enalapril Maleate (Vasotec) 5 mg DAILY PO Last administered on 10/28/17at 07:53; Start 10/26/17 at 09:00 Enoxaparin Sodium (Lovenox Inj) 30 mg Q24H SQ Last administered on 10/29/17at 05: 35; Start 10/28/17 at 06:00 Guaifenesin (Mucinex Er) 600 mg BID PO Last administered on 10/28/17 23:28; Start 10/26/17 at 09:00 Lactulose (Lactulose Liq) 30 ml DAILY PRN PO SEVERE CONSITIPATION; Start at 05:45 Levofloxacin (Levaquin) 750 mg Q48H PO Last administered on 10/27/17at 08:28; Start 10/27/17 at 09:00 Levofloxacin/ Dextrose 150 ml @ 100 mls/hr Q24H IV ; Start 10/27/17 at 09:00; Stop 10/27/17 at 09:00; Status DC Magnesium Hydroxide (Milk Of Magnesia Liq) 30 ml Q12H PRN PO Mild constipation ; Start 10/26/17 at 05:45 Methylprednisolone Sodium Succinate (SoluMEDROL INJ) 40 mg Q8HR IV PUSH Last administered on 10/29/17at 05:35; Start 10/26/17 at 14:00 Naloxone HCl (Narcan Inj) 0.4 mg UNSCH PRN IV PUSH SEE LABEL COMMENTS; Start at 05:45 Ondansetron HCl (Zofran Inj) 4 mg Q6H PRN IVP NAUSEA OR VOMITING; Start at 05:45 Prednisone (Deltasone) 40 mg ONCE ONCE PO ; Start 10/26/17 at 05:45; Stop at 05:45; Status DC Senna/Docusate Sodium (Karely-Colace) 1 tab BID PO Last administered on 10/28/17at 23:28; Start 10/26/17 at 09:00 Sennosides (Senokot) 17.2 mg Q12H PRN PO Moderate constipation; Start 10/26/17 at 05:45 Sodium Chloride (NS Flush) 2 ml BID IV FLUSH Last administered on 10/28/17at 07: 50; Start 10/26/17 at 09:00 Tolterodine Tartrate (Detrol La) 2 mg DAILY PO Last administered on 10/28/17at 08 :37; Start 10/26/17 at 09:00 A/P Assessment and Plan A/P URI with nonproductive cough and dyspnea, slowly improving CXR reveals chronic interstitial changes, no acute process Continue on Levaquin, changed to oral. taper down IV methylprednisolone , Likely change to oral steroids tomorrow. Continue on scheduled DuoNeb's every 4 hours while awake Continue on Mucinex ER 600mg BID and Tessalon 100mg TID Influenza antigen negative. Incentive spirometry at bedside, encourage use Continue to monitor respiratory status - passed the walk test. PT eval/tx HTN Adequately controlled Continue on Vasotec 5 mg daily Monitor BP and adjust treatment accordingly Overactive bladder Continue patient on home dose of Vesicare Incidental finding of previous thoracic spine compression fractures on chest x- ray Patient has no complaints of back pain DVT prophylaxis Lovenox subcutaneous Discharge Planning will observer for one more day; dc home tomorrow with [facility]. Alonzo Carmona MD Oct 29, 2017 09:16
[2017-10-29] MEDS: BENZONATATE 100 MG CAP PO SCH ×3 (09:40→18:30)
[2017-10-29] MEDS: ENALAPRIL MALEATE 5 MG TAB PO SCH (09:40)
[2017-10-29] MEDS: guaiFENesin E.R. 600 MG TAB PO SCH ×2 (09:40→21:00)
[2017-10-29] MEDS: LEVOFLOXACIN 750 MG TAB PO SCH (09:40)
[2017-10-29] MEDS: SODIUM CHLORIDE 0.9% FLUSH 10 ML FLUSH IV FLUSH SCH ×2 (09:41→22:28)
[2017-10-29] MEDS: DOCUSATE SODIUM 50 MG/SENNA 8.6 MG TAB PO SCH ×2 (09:41→22:28)
[2017-10-29] MEDS: BUDESONIDE-FORMOTEROL 160/4.5 MCG INHALER INH SCH ×2 (09:41→22:27)
[2017-10-29] MEDS: ASPIRIN 81 MG CHEW TAB PO SCH (09:51)
[2017-10-29] MEDS: TOLTERODINE TARTRATE 2 MG CAP LA PO SCH (10:57)
[2017-10-29 13:59] LABS: BICARBONATE 30.4 MEQ/L (21.0-32.0); CREATININE 1.26 MG/DL (0.50-1.00)
[2017-10-30] VITALS: BP 137/61; PULSE 76; RESP 20; TEMP 97.3; O2SAT 97
[2017-10-30 04:00] VITALS: BP 135/70; PULSE 61; RESP 16; TEMP 97.8; O2SAT 95
[2017-10-30] MEDS: ENOXAPARIN SODIUM 30 MG/0.3 ML SYRINGE SQ SCH (06:14)
[2017-10-30 08:00] VITALS: BP 158/72; PULSE 62; RESP 18; TEMP 97.7; O2SAT 93
[2017-10-30 08:15] VITALS: PULSE 73
--- NOTE | 2017-10-30 08:21 | HHI.PR ---
Subjective Remarks in no acute distress. says that her sob is better. no fever. Objective Vitals Vital Signs Date Time Temp Pulse Resp B/P (MAP) Pulse Ox O2 Delivery O2 Flow Rate FiO2 10/30/17 04:00 97.8 61 16 135/70 (91) 95 10/30/17 00:00 97.3 76 20 137/61 (86) 97 10/29/17 20:13 98.7 88 18 177/73 (107) 98 10/29/17 19:25 98 Nasal Cannula 2.00 10/29/17 16:06 98.2 80 18 126/52 (76) 96 10/29/17 12:46 98.6 82 20 129/50 (76) 96 10/29/17 08:27 99 Nasal Cannula 2.00 I/O 10/29/17 10/29/17 10/29/17 10/30/17 10/30/17 10/30/17 07:00 15:00 23:00 07:00 15:00 23:00 Intake Total 200 ml 480 ml Balance 200 ml 480 ml Intake Oral 200 ml 480 ml # Voids 2 Result Diagram: 10/27/17 0637 10/29/17 1235 Imaging Last Impressions Chest X-Ray 10/26/17 0419 Signed Impressions: Service Date/Time: October 04:28 - CONCLUSION: 1. Chronic interstitial changes. Darci Robbins Jr., MD Objective Remarks GENERAL: elderly female, in no apparent distress. CARDIOVASCULAR: Regular rate and regular rhythm without murmurs, gallops, or rubs. RESPIRATORY: bilateral wheezing. GASTROINTESTINAL: Abdomen soft, non-tender, nondistended. Normal, active bowel sounds MUSCULOSKELETAL: Extremities without clubbing, cyanosis, or edema. NEURO: Alert & Oriented x4 to person, place, time, situation. Moves all ext x4 Medications and IVs Inpatient Medications Acetaminophen (Tylenol) 650 mg Q6H PRN PO headache/fever/pain1-2; Start at 05:45 Acetaminophen/ Hydrocodone Bitart ([place] 5-325 Mg) 1 tab Q4H PRN PO PAIN SCALE 3 TO 10 Last administered on 10/28/17at 23:23; Start 10/26/17 at 05:45 Albuterol/ Ipratropium (Duoneb Neb) 1 ampule Q2HR NEB PRN NEB SOB/wheezing Last administered on 10/29/17 03:09; Start 10/26/17 at 05:45 Aspirin (Aspirin Chew) 81 mg DAILY PO Last administered on 10/29/17 09:51; Start 10/26/17 at 09:00 Benzonatate (Tessalon) 100 mg TID PO Last administered on 10/29/17at 18:30; Start 10/26/17 at 09:00 Bisacodyl (Dulcolax Supp) 10 mg DAILY PRN RECTAL SEVERE CONSITIPATION; Start at 05:45 Budesonide/ Formoterol Fumarate (Symbicort 160-4.5 Mcg Inh) 2 puff Q12HR INH Last administered on 10/29/17 22:27; Start 10/26/17 at 09:00 Enalapril Maleate (Vasotec) 5 mg DAILY PO Last administered on 10/29/17at 09:40; Start 10/26/17 at 09:00 Enoxaparin Sodium (Lovenox Inj) 30 mg Q24H SQ Last administered on 10/30/17 06: 14; Start 10/28/17 at 06:00 Guaifenesin (Mucinex Er) 600 mg BID PO Last administered on 10/29/17 09:40; Start 10/26/17 at 09:00 Lactulose (Lactulose Liq) 30 ml DAILY PRN PO SEVERE CONSITIPATION; Start at 05:45 Levofloxacin (Levaquin) 750 mg Q48H PO Last administered on 10/29/17at 09:40; Start 10/27/17 at 09:00 Levofloxacin/ Dextrose 150 ml @ 100 mls/hr Q24H IV ; Start 10/27/17 at 09:00; Stop 10/27/17 at 09:00; Status DC Magnesium Hydroxide (Milk Of Magnesia Liq) 30 ml Q12H PRN PO Mild constipation ; Start 10/26/17 at 05:45 Methylprednisolone Sodium Succinate (SoluMEDROL INJ) 20 mg Q8HR IV PUSH Last administered on 10/29/17at 22:28; Start 10/29/17 at 14:00 Naloxone HCl (Narcan Inj) 0.4 mg UNSCH PRN IV PUSH SEE LABEL COMMENTS; Start at 05:45 Ondansetron HCl (Zofran Inj) 4 mg Q6H PRN IVP NAUSEA OR VOMITING; Start at 05:45 Prednisone (Deltasone) 40 mg ONCE ONCE PO ; Start 10/26/17 at 05:45; Stop at 05:45; Status DC Senna/Docusate Sodium ([place]-Colace) 1 tab BID PO Last administered on 10/29/17at 22:28; Start 10/26/17 at 09:00 Sennosides (Senokot) 17.2 mg Q12H PRN PO Moderate constipation; Start 10/26/17 at 05:45 Sodium Chloride (NS Flush) 2 ml BID IV FLUSH Last administered on 10/29/17at 22: 28; Start 10/26/17 at 09:00 Tolterodine Tartrate (Detrol La) 2 mg DAILY PO Last administered on 10/29/17at 10 :57; Start 10/26/17 at 09:00 A/P Assessment and Plan A/P URI with nonproductive cough and dyspnea, slowly improving CXR reveals chronic interstitial changes, no acute process Continue on Levaquin, changed to oral. switch to prednisone upon discharge. Continue on DuoNeb's every 4 hours while awake Continue on Mucinex ER 600mg BID and Tessalon 100mg TID Influenza antigen negative. Incentive spirometry at bedside, encourage use Continue to monitor respiratory status - passed the walk test. PT eval/tx HTN Adequately controlled Continue on Vasotec 5 mg daily Monitor BP and adjust treatment accordingly Overactive bladder Continue patient on home dose of Vesicare Incidental finding of previous thoracic spine compression fractures on chest x- ray Patient has no complaints of back pain DVT prophylaxis Lovenox subcutaneous Discharge Planning likely dc home later today- pending BMP. rehab was offered but she wants to go home. will have HHC. f/u; pcp. Alonzo Carmona MD Oct 30, 2017 08:21
[2017-10-30] MEDS ORDERED: Budeson-Formot 160-4.5 Mcg Inh INH (08:25)
[2017-10-30] MEDS ORDERED: LEVA750T9 PO (08:25)
[2017-10-30] MEDS ORDERED: PRED20 PO (08:25)
[2017-10-30] MEDS ORDERED: BENZ100 PO (08:25)
--- NOTE | 2017-10-30 08:27 | HHI.DS ---
Discharge Summary Admission Date Oct 26, 2017 at 05:38 Discharge Date: Oct 30, 2017 Admitting Diagnosis COPD exacerbation (1) Dyspnea ICD Code: R06.00 - Dyspnea, unspecified Diagnosis: Principal Procedures none Brief History - From Admission 87-year-old female with a past medical history significant for hypertension and possibly COPD (patient states she may have previously been diagnosed with COPD) presents to the emergency department with increasing shortness of breath. The patient reports that approximately one week ago she caught a cold. She endorses subjective fever/chills. She has an unrelenting nonproductive cough. The patient reports that she has just not been able to catch her breath and came to the emergency department for further evaluation. She had a similar episode approximately one and a half years ago requiring hospitalization and she was discharged with nebulizer treatments. No leukocytosis. Afebrile. Respiratory rate 26 on arrival. Oxygen saturation decreased to 90% when patient placed on room air. Chest x-ray showed chronic interstitial changes without acute process. CBC/BMP: 10/27/17 0637 10/29/17 1235 Significant Findings Laboratory Tests Test 10/29/17 12:35 Blood Urea Nitrogen 43 MG/DL (7-18) Creatinine 1.26 MG/DL (0.50-1.00) Random Glucose 135 MG/DL (74-106) Estimat Glomerular Filtration Rate 40 ML/MIN (>89) Imaging Last Impressions Chest X-Ray 10/26/17 0419 Signed Impressions: Service Date/Time: October 04:28 - CONCLUSION: 1. Chronic interstitial changes. Darci Robbins Jr., MD PE at Discharge GENERAL: elderly female, in no apparent distress. CARDIOVASCULAR: Regular rate and regular rhythm without murmurs, gallops, or rubs. RESPIRATORY: bilateral wheezing. GASTROINTESTINAL: Abdomen soft, non-tender, nondistended. Normal, active bowel sounds MUSCULOSKELETAL: Extremities without clubbing, cyanosis, or edema. NEURO: Alert & Oriented x4 to person, place, time, situation. Moves all ext x4 Hospital Course patient was admitted with worsening sob and cough. she was started on IV steroids, neb treatment and antibiotic. her sob improved. she was evaluated by PT. rehab was offered but the patient wanted to go home. case management consulted for [facility]. she will have a follow-up with pcp upon discharge. Pt Condition on Discharge: Fair Discharge Disposition: Disch w/ Home Health Serv Discharge Time: <= 30 minutes Discharge Instructions DIET: Follow Instructions for: Heart Healthy Diet Activities you can perform: Regular-No Restrictions Follow up Referrals: PCP Follow-up New Medications: Albuterol 18 GM Inh (Ventolin Hfa 18 GM Inh) 90 Mcg/Act Aer 2 PUFF INH Q6H PRN for SHORTNESS OF BREATH, #1 INHALER 0 Refills Prednisone (Prednisone) 20 Mg Tab 40 MG PO DAILY for Shortness of Breath for 5 Days, #10 TAB 0 Refills Take 40 mg (2 tablets) daily for 5 days Walker with Front Wheels (Walker with Front Wheels) 1 Mis Mis EA .ROUTE DIRECTED, #1 0 Refills Benzonatate (Tessalon Perles) 100 Mg Cap 100 MG PO TID PRN for cough, #15 CAP 0 Refills Levofloxacin (Levaquin) 750 Mg Tablet 750 MG PO Q48H for infection for 2 Days, TAB 0 Refills [Budeson-Formot 160-4.5 Mcg Inh] () 60 PUFF AERO 2 PUFF INH Q12HR for Shortness of Breath, #1 0 Refills Continued Medications: Aspirin (Aspirin Low Dose) 81 Mg Chew 81 MG PO DAILY, TAB 0 Refills Enalapril (Enalapril) 5 Mg Tab 5 MG PO DAILY, #30 TAB 0 Refills Solifenacin (Vesicare) 5 Mg Tab 5 MG PO DAILY for Urinary Symptom Managemen, #30 TAB 0 Refills Alonzo Carmona MD Oct 30, 2017 08:27
[2017-10-30] MEDS ORDERED: VENTAER INH (08:28)
[2017-10-30] MEDS: DOCUSATE SODIUM 50 MG/SENNA 8.6 MG TAB PO SCH (08:28)
[2017-10-30] MEDS: ASPIRIN 81 MG CHEW TAB PO SCH (08:29)
[2017-10-30] MEDS: TOLTERODINE TARTRATE 2 MG CAP LA PO SCH (08:29)
[2017-10-30] MEDS: BENZONATATE 100 MG CAP PO SCH ×2 (08:29→14:07)
[2017-10-30] MEDS: guaiFENesin E.R. 600 MG TAB PO SCH (08:29)
[2017-10-30] MEDS: ENALAPRIL MALEATE 5 MG TAB PO SCH (08:29)
[2017-10-30] MEDS: SODIUM CHLORIDE 0.9% FLUSH 10 ML FLUSH IV FLUSH SCH (08:30)
[2017-10-30] MEDS: BUDESONIDE-FORMOTEROL 160/4.5 MCG INHALER INH SCH (08:30)
[2017-10-30] MEDS: methylPREDNISolone SOD SUCC 40 MG/1 ML VIAL IV PUSH SCH ×2 (08:30→14:07)
[2017-10-30 10:06] LABS: BICARBONATE 31.9 MEQ/L (21.0-32.0); CALCIUM 9.9 MG/DL (8.5-10.1); CREATININE 1.02 MG/DL (0.50-1.00)
[2017-10-30 12:00] VITALS: BP 141/61; PULSE 86; RESP 18; TEMP 98.2; O2SAT 94
--- NOTE | 2017-10-31 12:11 | HHI.FF ---
Face to Face Verification Diagnosis: (1) Impaired mobility and activities of daily living (2) Interstitial lung disease (3) Dyspnea Physical Therapy Order: Evaluate and Treat, Improve ambulation, Strength and gait training Home Health Nursing Order: Medical education Signs/symptoms of disease process Nursing assessment with vital signs I have seen patient Virginia Cuba on 10/31/17. My clinical findings support the need for the requested home health care services because: Ltd mobility - disease progression Patient has SOB Deconditioned w/ increased weakness Limited ability to care for self I certify that my clinical findings support that this patient is homebound because: Hx COPD- exertion dyspnea/weakness Unsteady gait/balance Unsafe to leave home unassisted Unable to use public transportation Aimee Posey PA-C Oct 31, 2017 12:11 pm
== END 2017-10-30 18:12 | disposition home health service (06) ==
LOC: NEPC 04:14 → NEDA 05:38 → NEPHCDU 06:13
PROVIDERS: ADMIT Internal Medicine; ATTEND Internal Medicine
DX: J44.1 Chronic obstructive pulmonary disease with (acute) exacerbation (principal); J06.9 Acute upper respiratory infection, unspecified; I10 Essential (primary) hypertension; I25.2 Old myocardial infarction; R94.31 Abnormal electrocardiogram [ECG] [EKG]; N32.81 Overactive bladder; Z79.82 Long term (current) use of aspirin
CPT/HCPCS: 71046; 80048; 80053; 81001; 82306; 85025; 87804; 93005; 94150; 94618; 94640; 94664; 96365; 96372; 96375; 96376; 97162; 99285; G0378; G8987; G8988; J1650; J1956; J2920

== ENCOUNTER 2017-11-15 07:13 | Emergency (ER) | payer MEDICARE, MEDICAID ==
[~2017-11-15] VITALS: Ht 152.4 cm; Wt 50.3 kg
[~2017-11-15 07:13] MED LIST: ASPI81CH6 PO; BENZ100 PO; Budeson-Formot 160-4.5 Mcg Inh INH; ENAL5TAB PO; LEVA750T9 PO; PRED20 PO; VENTAER INH; VESI5TAB2 PO; WALKER WHEELS/F1 MIS
[2017-11-15 07:15] VITALS: RESP 16; O2SAT 97
[2017-11-15 07:17] VITALS: BP 167/74; PULSE 64; RESP 16; TEMP 98.1; O2SAT 97
[2017-11-15] MEDS ORDERED: VITA100018 PO (07:36)
[2017-11-15] MEDS ORDERED: MECLIZINE HCL 25 MG TAB PO ONE (07:45)
--- NOTE | 2017-11-15 07:52 | PD ---
HPI Chief Complaint: Dizziness Time Seen by Provider: 07:18 Travel History International Travel<30 days: No Contact w/Intl Traveler<30days: No Traveled to known affect area: No History of Present Illness HPI 87-year-old female complains of dizziness. Patient was get out of bed this morning and started feeling dizziness. Patient states that she has sensation of things spinning around her. Patient denies any headache. Patient denies any visual change. Patient denies any neck pain. Patient denies any chest pain or shortness of breath. She denies abdominal pain. Patient denies any focal weakness or numbness of extremity. Patient denies any nausea vomiting. Patient has been eating well. Patient states that the dizziness is worse with head movement. Patient denies any dizziness at rest. PFSH Past Medical History Hx Anticoagulant Therapy: Yes (BABY ASA DAILY) Cardiovascular Problems: Yes COPD: Yes Hypertension: Yes Respiratory: Yes Immunizations Current: Yes Myocardial Infarction: Yes ?: Not Past Surgical History Other Surgery: Yes (polyps removed) Social History Alcohol Use: No Tobacco Use: No Substance Use: No Allergies-Medications (Allergen,Severity, Reaction): Coded Allergies: No Known Allergies (Verified Allergy, Unknown, 11/15/17) Reported Meds & Prescriptions Reported Meds & Active Scripts Active Ventolin Hfa 18 GM Inh (Albuterol Sulfate) 90 Mcg/Act Aer 2 Puff INH Q6H PRN [Budeson-Formot 160-4.5 Mcg Inh] 60 PUFF Aero 2 Puff INH Q12HR Walker with Front Wheels (Device) 1 Mis Mis Ea .ROUTE DIRECTED Reported Vitamin D3 (Cholecalciferol) 1,000 Unit Tab 1,000 Units PO DAILY Enalapril (Enalapril Maleate) 5 Mg Tab 5 Mg PO DAILY Aspirin Low Dose (Aspirin) 81 Mg Chew 81 Mg PO DAILY Vesicare (Solifenacin) 5 Mg Tab 5 Mg PO DAILY Review of Systems General / Constitutional: No: Fever Eyes: No: Visual changes HENT: Positive: Vertigo, Lightheadedness, No: Headaches Cardiovascular: No: Chest Pain or Discomfort Respiratory: No: Shortness of Breath Gastrointestinal: No: Abdominal Pain Genitourinary: No: Dysuria Musculoskeletal: No: Pain Skin: No Rash Neurologic: No: Weakness Psychiatric: No: Depression Endocrine: No: Polydipsia Hematologic/Lymphatic: No: Easy Bruising Physical Exam Narrative GENERAL: Well-nourished, well-developed patient. SKIN: Focused skin assessment warm/dry. HEAD: Normocephalic. EYES: No scleral icterus. No injection or drainage. NECK: Supple, trachea midline. No JVD or lymphadenopathy. CARDIOVASCULAR: Regular rate and rhythm without murmurs, gallops, or rubs. RESPIRATORY: Breath sounds equal bilaterally. No accessory muscle use. GASTROINTESTINAL: Abdomen soft, non-tender, nondistended. MUSCULOSKELETAL: No cyanosis, or edema. BACK: Nontender without obvious deformity. No CVA tenderness. Neurologic exam normal. Data Data Last Documented VS Vital Signs Date Time Temp Pulse Resp B/P (MAP) Pulse Ox O2 Delivery O2 Flow Rate FiO2 11/15/17 07:24 16 97 Room Air 11/15/17 07:17 98.1 64 167/74 (105) Orders Orders Meclizine (Antivert) (11/15/17 07:45) Complete Blood Count With Diff (11/15/17 07:47) Basic Metabolic Panel (Bmp) (11/15/17 07:47) Iv Access Insert/Monitor (11/15/17 07:47) Ecg Monitoring (11/15/17 07:47) Oximetry (11/15/17 07:47) Labs Laboratory Tests Test 11/15/17 08:05 White Blood Count 5.5 TH/MM3 Red Blood Count 3.46 MIL/MM3 Hemoglobin 10.6 GM/DL Hematocrit 33.0 % Mean Corpuscular Volume 95.4 FL Mean Corpuscular Hemoglobin 30.5 PG Mean Corpuscular Hemoglobin Concent 31.9 % Red Cell Distribution Width 14.4 % Platelet Count 139 TH/MM3 Mean Platelet Volume 9.2 FL Neutrophils (%) (Auto) 68.6 % Lymphocytes (%) (Auto) 19.2 % Monocytes (%) (Auto) 5.6 % Eosinophils (%) (Auto) 5.8 % Basophils (%) (Auto) 0.8 % Neutrophils # (Auto) 3.8 TH/MM3 Lymphocytes # (Auto) 1.1 TH/MM3 Monocytes # (Auto) 0.3 TH/MM3 Eosinophils # (Auto) 0.3 TH/MM3 Basophils # (Auto) 0.0 TH/MM3 CBC Comment DIFF FINAL Differential Comment Blood Urea Nitrogen 16 MG/DL Creatinine 0.78 MG/DL Random Glucose 85 MG/DL Calcium Level 8.8 MG/DL Sodium Level 141 MEQ/L Potassium Level 4.2 MEQ/L Chloride Level 106 MEQ/L Carbon Dioxide Level 30.6 MEQ/L Anion Gap 4 MEQ/L Estimat Glomerular Filtration Rate 70 ML/MIN MDM Medical Decision Making Medical Screen Exam Complete: Yes Emergency Medical Condition: Yes Interpretation(s) 8:42 AM. CBC with WBC 5.5. Hemoglobin 10.6 hematocrit 33.0. Platelet 139. Normal differential. BMP within normal limit. Differential Diagnosis Differential diagnosis including vertigo, dehydration, electrolyte imbalance, TIA, CVA. Narrative Course 87-year-old female with sudden onset of dizziness with head movement this morning. Meclizine 25 mg by mouth given. Diagnosis Primary Impression: Acute onset of severe vertigo Patient Instructions: General Instructions Additional Instructions: Meclizine as needed. Follow-up with personal physician. Return if persistent problem or worse. Med/Other Pt SpecificInfo: Prescription(s) given Scripts Ondansetron Odt (Zofran Odt) 4 Mg Tab 4 MG SL Q6HR Y for Nausea/Vomiting, #10 TAB 0 Refills Prov: Jose Stoddard MD 11/15/17 Meclizine (Meclizine) 25 Mg Tab 25 MG PO TID Y for VERTIGO, #30 TAB 0 Refills Prov: Jose Stoddard MD 11/15/17 Disposition: 01 DISCHARGE HOME Condition: Stable Jose Stoddard MD Nov 15, 2017 07:52
[2017-11-15 08:11] LABS: AUTOMATED NEUTROPHIL # 3.8 TH/MM3 (1.8-7.7); BASOPHIL % 0.8 % (0.0-2.0); EOSINOPHIL # 0.3 TH/MM3 (0-0.4); EOSINOPHIL % 5.8 % (0.0-4.0); HEMOGLOBIN 10.6 GM/DL (11.6-15.3); LYMPH % 19.2 % (9.0-44.0); LYMPHOCYTE # 1.1 TH/MM3 (1.0-4.8); MEAN CELL VOLUME 95.4 FL (80.0-100.0); MEAN CORPUSCULAR HEMOGLOBIN 30.5 PG (27.0-34.0); MEAN CORPUSCULAR HGB CONC 31.9 % (32.0-36.0); MEAN PLATELET VOLUME 9.2 FL (7.0-11.0); MONO % 5.6 % (0.0-8.0); MONOCYTE # 0.3 TH/MM3 (0-0.9); NEUT % 68.6 % (16.0-70.0); PLATELET COUNT 139 TH/MM3 (150-450); RED BLOOD COUNT 3.46 MIL/MM3 (4.00-5.30); RED CELL DISTRIBUTION WIDTH 14.4 % (11.6-17.2); WHITE BLOOD COUNT 5.5 TH/MM3 (4.0-11.0)
[2017-11-15 08:24] LABS: BICARBONATE 30.6 MEQ/L (21.0-32.0); CALCIUM 8.8 MG/DL (8.5-10.1)
[2017-11-15 08:28] LABS: CREATININE 0.78 MG/DL (0.50-1.00)
[2017-11-15] MEDS ORDERED: MECL-62 PO (08:45)
[2017-11-15] MEDS ORDERED: ZOFR4TAB3 SL (08:45)
[2017-11-15 08:50] VITALS: BP 164/70; PULSE 61; RESP 16; O2SAT 97
== END 2017-11-15 10:02 | disposition home or self-care (01) ==
LOC: PHED 07:13
DX: R42 Dizziness and giddiness (principal); J44.9 Chronic obstructive pulmonary disease, unspecified; I10 Essential (primary) hypertension; I25.2 Old myocardial infarction; Z79.82 Long term (current) use of aspirin
CPT/HCPCS: 80048; 85025; 99284

== ENCOUNTER 2017-11-29 17:06 | Emergency (ER) | payer MEDICAID, MEDICARE ==
[~2017-11-29] VITALS: Ht 152.4 cm; Wt 50.0 kg
[~2017-11-29 17:06] MED LIST changes: -BENZ100 PO; -LEVA750T9 PO; +MECL-62 PO; -PRED20 PO; +VITA100018 PO; +ZOFR4TAB3 SL
[2017-11-29 17:09] VITALS: BP 158/73; PULSE 97; RESP 18; TEMP 98.1; O2SAT 94
--- NOTE | 2017-11-29 17:43 | PD ---
HPI Chief Complaint: Respiratory Symptoms Time Seen by Provider: 17:28 Travel History International Travel<30 days: No Contact w/Intl Traveler<30days: No Traveled to known affect area: No History of Present Illness HPI This patient complains of cough and congestion and shortness of breath. She has a lot of nasal mucus and discharge. She denies fever or chest pain. No presyncopal symptoms. Patient was hospitalized last month for shortness of breath and there was question of history of COPD. However she says she never in her life smoked this seems unlikely. She is coughing excessively in the room. Room air saturations are 94%. Symptoms severity is moderate. Duration 3 days. No alleviating factors. No Exacerbating factors. However, she is covered in pet fur [facility] Past Medical History Hx Anticoagulant Therapy: Yes (BABY ASA DAILY) Cardiovascular Problems: Yes COPD: Yes Hypertension: Yes Respiratory: Yes Immunizations Current: Yes Myocardial Infarction: Yes Past Surgical History Other Surgery: Yes (polyps removed) Social History Alcohol Use: No Tobacco Use: No Substance Use: No Allergies-Medications (Allergen,Severity, Reaction): Coded Allergies: No Known Allergies (Verified Allergy, Unknown, 11/29/17) Reported Meds & Prescriptions Reported Meds & Active Scripts Active Zofran Odt (Ondansetron Odt) 4 Mg Tab 4 Mg SL Q6HR PRN Meclizine (Meclizine HCl) 25 Mg Tab 25 Mg PO TID PRN Ventolin Hfa 18 GM Inh (Albuterol Sulfate) 90 Mcg/Act Aer 2 Puff INH Q6H PRN [Budeson-Formot 160-4.5 Mcg Inh] 60 PUFF Aero 2 Puff INH Q12HR Walker with Front Wheels (Device) 1 Mis Mis Ea .ROUTE DIRECTED Reported Vitamin D3 (Cholecalciferol) 1,000 Unit Tab 1,000 Units PO DAILY Enalapril (Enalapril Maleate) 5 Mg Tab 5 Mg PO DAILY Aspirin Low Dose (Aspirin) 81 Mg Chew 81 Mg PO DAILY Vesicare (Solifenacin) 5 Mg Tab 5 Mg PO DAILY Review of Systems General / Constitutional: No: Fever Eyes: No: Visual changes HENT: Positive: Rhinorrhea, Congestion, No: Headaches Cardiovascular: No: Chest Pain or Discomfort Respiratory: Positive: Cough, Shortness of Breath Gastrointestinal: No: Abdominal Pain Genitourinary: No: Dysuria Musculoskeletal: No: Pain Skin: No Rash Neurologic: No: Weakness Psychiatric: No: Depression Endocrine: No: Polydipsia Hematologic/Lymphatic: No: Easy Bruising Physical Exam Narrative GENERAL: Well-nourished, well-developed patient with cough and congestion SKIN: Focused skin assessment reveals no rash and nodules. Skin is Warm and dry. HEAD: Atraumatic. Normocephalic. EYES: Pupils equal and round. No scleral icterus. No injection or drainage. ENT: No nasal bleeding or discharge. Mucous membranes pink and moist. NECK: Trachea midline. No JVD. CARDIOVASCULAR: Regular rate and rhythm. No murmur appreciated. RESPIRATORY: No accessory muscle use. Some rhonchi noted. Breath sounds equal bilaterally. GASTROINTESTINAL: Abdomen soft, non-tender, nondistended. Hepatic and splenic margins not palpable. MUSCULOSKELETAL: No obvious deformities. No clubbing. No cyanosis. No edema. NEUROLOGICAL: Awake and alert. No obvious cranial nerve deficits. Motor grossly within normal limits. Normal speech. PSYCHIATRIC: Appropriate mood and affect; insight and judgment normal. Data Data Last Documented VS Vital Signs Date Time Temp Pulse Resp B/P (MAP) Pulse Ox O2 Delivery O2 Flow Rate FiO2 11/29/17 19:20 90 18 135/58 (83) 93 Room Air 11/29/17 17:09 98.1 Orders Orders Chest, Single Ap (11/29/17 ) Albuterol-Ipratropium Neb (Duoneb Neb) (11/29/17 17:45) Albuterol-Ipratropium Neb (Duoneb Neb) (11/29/17 17:45) Iv Access Insert/Monitor (11/29/17 17:33) Complete Blood Count With Diff (11/29/17 17:33) Basic Metabolic Panel (Bmp) (11/29/17 17:33) Influenzae A/B Antigen (11/29/17 17:33) Labs Laboratory Tests Test 11/29/17 18:25 White Blood Count 5.7 TH/MM3 Red Blood Count 3.66 MIL/MM3 Hemoglobin 11.0 GM/DL Hematocrit 34.0 % Mean Corpuscular Volume 92.8 FL Mean Corpuscular Hemoglobin 30.1 PG Mean Corpuscular Hemoglobin Concent 32.4 % Red Cell Distribution Width 13.5 % Platelet Count 283 TH/MM3 Mean Platelet Volume 8.8 FL Neutrophils (%) (Auto) 54.6 % Lymphocytes (%) (Auto) 27.2 % Monocytes (%) (Auto) 10.2 % Eosinophils (%) (Auto) 6.7 % Basophils (%) (Auto) 1.3 % Neutrophils # (Auto) 3.1 TH/MM3 Lymphocytes # (Auto) 1.5 TH/MM3 Monocytes # (Auto) 0.6 TH/MM3 Eosinophils # (Auto) 0.4 TH/MM3 Basophils # (Auto) 0.1 TH/MM3 CBC Comment DIFF FINAL Differential Comment Blood Urea Nitrogen 19 MG/DL Creatinine 1.00 MG/DL Random Glucose 100 MG/DL Calcium Level 8.5 MG/DL Sodium Level 145 MEQ/L Potassium Level 3.8 MEQ/L Chloride Level 110 MEQ/L Carbon Dioxide Level 28.6 MEQ/L Anion Gap 6 MEQ/L Estimat Glomerular Filtration Rate 52 ML/MIN MDM Medical Decision Making Medical Screen Exam Complete: Yes Emergency Medical Condition: Yes Medical Record Reviewed: Yes Differential Diagnosis Pneumonia, bronchitis, flu syndrome Narrative Course I have reviewed the patient's electronic medical record. Reviewed her admission history and physical from last month. She had chronic and her stools changes on her chest x-ray I have examined her and ordered a workup IV placed CBC is normal Metabolic profile is normal I reviewed her chest x-ray is normal Influenza swab is negative I gave her 2 breathing treatments on recheck at 1942 patient looks clinically well. She is not coughing anymore. Her saturations are 95% on room air. She has nebulizer at home Stable for outpatient follow-up Diagnosis Primary Impression: Acute viral bronchitis Additional Impressions: Interstitial lung disease Shortness of breath Additional Instructions: The patient was advised to follow up with their physician and return if they worsen. Med/Other Pt SpecificInfo: Other Disposition: 01 DISCHARGE HOME Condition: Stable Gordy Wren MD Nov 29, 2017 17:43
[2017-11-29] MEDS ORDERED: RESP: ALBUTEROL 2.5 MG/IPRATROPIUM 0.5 MG NEB (SCH) NEB ONE ×2 (17:45)
--- NOTE | 2017-11-29 17:58 | RADRPT ---
EXAM DATE/TIME: 11/29/2017 17:38 [facility] COMPARISON: CHEST PA & LAT, October 26, 2017, 4:28. INDICATIONS : Cough, shortness of breath for 1 month MEDICAL HISTORY : Chronic obstructive pulmonary disease. Myocardial infarction. Hypertension SURGICAL HISTORY : None. ENCOUNTER: Initial ACUITY: 1 month PAIN SCORE: 0/10 LOCATION: Bilateral chest FINDINGS: A single view of the chest demonstrates the lungs to be symmetrically aerated without evidence of mas s, infiltrate or effusion. The cardiomediastinal contours are unremarkable. Osseous structures are intact. CONCLUSION: No acute disease. Papa Schafer MD on November 29, 2017 at 17:55 Board Certified Radiologist. This report was verified electronically.
[2017-11-29 18:31] VITALS: BP 154/67; PULSE 62; RESP 16; O2SAT 93
[2017-11-29 18:36] LABS: AUTOMATED NEUTROPHIL # 3.1 TH/MM3 (1.8-7.7); BASOPHIL # 0.1 TH/MM3 (0-0.2); BASOPHIL % 1.3 % (0.0-2.0); EOSINOPHIL # 0.4 TH/MM3 (0-0.4); EOSINOPHIL % 6.7 % (0.0-4.0); LYMPH % 27.2 % (9.0-44.0); LYMPHOCYTE # 1.5 TH/MM3 (1.0-4.8); MEAN CELL VOLUME 92.8 FL (80.0-100.0); MEAN CORPUSCULAR HEMOGLOBIN 30.1 PG (27.0-34.0); MEAN CORPUSCULAR HGB CONC 32.4 % (32.0-36.0); MEAN PLATELET VOLUME 8.8 FL (7.0-11.0); MONO % 10.2 % (0.0-8.0); MONOCYTE # 0.6 TH/MM3 (0-0.9); NEUT % 54.6 % (16.0-70.0); PLATELET COUNT 283 TH/MM3 (150-450); RED BLOOD COUNT 3.66 MIL/MM3 (4.00-5.30); RED CELL DISTRIBUTION WIDTH 13.5 % (11.6-17.2); WHITE BLOOD COUNT 5.7 TH/MM3 (4.0-11.0)
[2017-11-29 19:11] LABS: BICARBONATE 28.6 MEQ/L (21.0-32.0); CALCIUM 8.5 MG/DL (8.5-10.1)
[2017-11-29 19:20] VITALS: BP 135/58; PULSE 90; RESP 18; O2SAT 93
[2017-11-29 19:58] VITALS: BP 139/67
== END 2017-11-29 20:10 | disposition home or self-care (01) ==
LOC: PHED 17:06
DX: J20.8 Acute bronchitis due to other specified organisms (principal); B97.89 Other viral agents as the cause of diseases classified elsewhere; J84.9 Interstitial pulmonary disease, unspecified; J44.0 Chronic obstructive pulmonary disease with (acute) lower respiratory infection; I10 Essential (primary) hypertension; I25.2 Old myocardial infarction; Z79.82 Long term (current) use of aspirin; Z79.899 Other long term (current) drug therapy
CPT/HCPCS: 71045; 80048; 85025; 87804; 94640; 94664; 99284

== ENCOUNTER 2017-12-05 13:12 | Emergency (ER) | payer MEDICARE, OTHER ==
[2017-12-05 13:14] VITALS: BP 125/62; PULSE 110; RESP 18; TEMP 98.2; O2SAT 93
[2017-12-05 13:53] VITALS: BP 107/66; PULSE 101; RESP 18; O2SAT 97
[2017-12-05 13:55] VITALS: RESP 18; O2SAT 97
--- NOTE | 2017-12-05 14:03 | PD ---
HPI Chief Complaint: Respiratory Symptoms Time Seen by Provider: 13:44 Travel History International Travel<30 days: No Contact w/Intl Traveler<30days: No Traveled to known affect area: No History of Present Illness HPI The patient's 87 years old. She has a history of COPD and arrives by private vehicle from home due to coughing associated with dyspnea. She reports she had some pills the name of which she cannot recall which were helpful with her cough. She also reports waking up in the mornings with anxiety or panic attacks which is disruptive to the household including her daughter and grandchildren. She reports no history of panic attacks and reports they occur about once every 3 days or so. She reports visiting here from [facility] for [place] and that the shortness of breath symptoms tend to occur more frequently in this location. PFSH Past Medical History Hx Anticoagulant Therapy: Yes (BABY ASA DAILY) Cardiovascular Problems: Yes COPD: Yes Diminished Hearing: Yes Hypertension: Yes Respiratory: Yes Immunizations Current: Yes Myocardial Infarction: Yes Tetanus Vaccination: Unknown Influenza Vaccination: Yes ?: Not Menopausal: Yes Past Surgical History Other Surgery: Yes (polyps removed) Social History Alcohol Use: No Tobacco Use: No Substance Use: No Allergies-Medications (Allergen,Severity, Reaction): Coded Allergies: No Known Allergies (Verified Allergy, Unknown, 12/05/17) Reported Meds & Prescriptions Reported Meds & Active Scripts Active Benzonatate 100 Mg Cap 100 Mg PO TID PRN Meclizine (Meclizine HCl) 25 Mg Tab 25 Mg PO TID PRN Ventolin Hfa 18 GM Inh (Albuterol Sulfate) 90 Mcg/Act Aer 2 Puff INH Q6H PRN [Budeson-Formot 160-4.5 Mcg Inh] 60 PUFF Aero 2 Puff INH Q12HR Reported Vitamin D3 (Cholecalciferol) 1,000 Unit Tab 1,000 Units PO DAILY Enalapril (Enalapril Maleate) 5 Mg Tab 5 Mg PO DAILY Aspirin Low Dose (Aspirin) 81 Mg Chew 81 Mg PO DAILY Vesicare (Solifenacin) 5 Mg Tab 5 Mg PO DAILY Review of Systems Except as stated in HPI: all other systems reviewed are Neg Physical Exam Narrative GENERAL: 87-year-old female pleasant well-nourished well-developed. Vital Signs Date Time Temp Pulse Resp B/P (MAP) Pulse Ox O2 Delivery O2 Flow Rate FiO2 2/13/18 13:55 97 Nasal Cannula 2.00 12/05/17 13:55 18 97 Nasal Cannula 2.00 12/05/17 13:53 101 18 107/66 (80) 97 2.00 12/05/17 13:51 102 18 93 Room Air 12/05/17 13:14 98.2 110 18 125/62 (83) 93 SKIN: Warm and dry. HEAD: Atraumatic. Normocephalic. EYES: Pupils equal and round. No scleral icterus. No injection or drainage. ENT: No nasal bleeding or discharge. Mucous membranes pink and moist. NECK: Trachea midline. No JVD. CARDIOVASCULAR: Heart rate is approximately 100. Regular. RESPIRATORY: There is no significant dyspnea. There is trace wheezing bilaterally. GASTROINTESTINAL: Abdomen soft, non-tender, nondistended. Hepatic and splenic margins not palpable. MUSCULOSKELETAL: Extremities without clubbing, cyanosis, or edema. No obvious deformities. NEUROLOGICAL: Patient is a and O 2 with some confusion regarding the date. There is no focal cranial nerve deficit. No focal motor deficit.. PSYCHIATRIC: Appropriate mood and affect; insight and judgment normal. Data Data Last Documented VS Vital Signs Date Time Temp Pulse Resp B/P (MAP) Pulse Ox O2 Delivery O2 Flow Rate FiO2 12/05/17 13:55 97 Nasal Cannula 2.00 12/05/17 13:55 18 12/05/17 13:53 101 12/05/17 13:14 98.2 Orders Orders Complete Blood Count With Diff (12/05/17 14:02) Basic Metabolic Panel (Bmp) (12/05/17 14:02) Iv Access Insert/Monitor (12/05/17 14:02) Electrocardiogram (12/05/17 14:02) Ecg Monitoring (12/05/17 14:02) Oximetry (12/05/17 14:02) Oxygen Administration (12/05/17 14:02) Chest, Single Ap (12/05/17 14:02) Sodium Chloride 0.9% Flush (Ns Flush) (12/05/17 14:15) Albuterol-Ipratropium Neb (Duoneb Neb) (12/05/17 14:15) Ed Discharge Order (12/05/17 15:13) Labs Laboratory Tests Test 12/05/17 14:15 White Blood Count 7.5 TH/MM3 Red Blood Count 3.60 MIL/MM3 Hemoglobin 11.6 GM/DL Hematocrit 33.4 % Mean Corpuscular Volume 93.0 FL Mean Corpuscular Hemoglobin 32.3 PG Mean Corpuscular Hemoglobin Concent 34.7 % Red Cell Distribution Width 14.3 % Platelet Count 205 TH/MM3 Mean Platelet Volume 10.0 FL Neutrophils (%) (Auto) 75.4 % Lymphocytes (%) (Auto) 14.4 % Monocytes (%) (Auto) 5.8 % Eosinophils (%) (Auto) 3.6 % Basophils (%) (Auto) 0.8 % Neutrophils # (Auto) 5.6 TH/MM3 Lymphocytes # (Auto) 1.1 TH/MM3 Monocytes # (Auto) 0.4 TH/MM3 Eosinophils # (Auto) 0.3 TH/MM3 Basophils # (Auto) 0.1 TH/MM3 CBC Comment DIFF FINAL Differential Comment Blood Urea Nitrogen 19 MG/DL Creatinine 1.00 MG/DL Random Glucose 93 MG/DL Calcium Level 8.2 MG/DL Sodium Level 142 MEQ/L Potassium Level 3.9 MEQ/L Chloride Level 108 MEQ/L Carbon Dioxide Level 28.1 MEQ/L Anion Gap 6 MEQ/L Estimat Glomerular Filtration Rate 52 ML/MIN MDM Medical Decision Making Medical Screen Exam Complete: Yes Emergency Medical Condition: Yes Medical Record Reviewed: Yes Differential Diagnosis COPD, interstitial lung disease, anxiety, anemia, metabolic disarray, cardiomyopathy Narrative Course CBC & BMP Diagram 12/05/17 14:15 Calcium Level 8.2 L EKG shows a sinus rhythm with a rate of 97, somewhat limited due to artifact however there is no gross morphologic variation from 5 weeks prior Last Impressions Chest X-Ray 12/05/17 1402 Signed Impressions: Service Date/Time: Tuesday, December 05, 2017 14:16 - CONCLUSION: Cardiomegaly without pulmonary vascular engorgement. Clear lungs. Darci Robbins Jr., MD The patient is resting comfortably and feels better, is alert and in no distress. The patients results and examination findings were discussed. The repeat examination is unremarkable and benign. The history, exam, diagnostic testing, and current condition do not suggest any significant pathology to warrant further testing, continued ED treatment, admission, or surgical evaluation at this point. The vital signs have been stable. The patient does not have uncontrollable pain, intractable vomiting, or other significant symptoms. The patient's condition is stable and appropriate for discharge. The patient will pursue further outpatient evaluation with a primary care physician or other designated or consulting physician as indicated in the discharge instructions. The patient expressed understanding and was agreeable with this plan. Diagnosis Primary Impression: Dyspnea Qualified Codes: R06.00 - Dyspnea, unspecified Additional Impression: Panic attacks Referrals: Primary Care Physician 2 days Med/Other Pt SpecificInfo: Prescription(s) given Scripts Benzonatate (Benzonatate) 100 Mg Cap 100 MG PO TID Y for COUGH, #20 CAP 0 Refills Prov: Amador Palomino MD 12/05/17 Disposition: 01 DISCHARGE HOME Condition: Stable Amador Palomino MD Dec 05, 2017 14:03
[2017-12-05] MEDS ORDERED: RESP: ALBUTEROL 2.5 MG/IPRATROPIUM 0.5 MG NEB (SCH) INH ONE (14:15)
[2017-12-05] MEDS ORDERED: SODIUM CHLORIDE 0.9% FLUSH 10 ML FLUSH IVF PRN (14:15)
[2017-12-05 14:25] LABS: AUTOMATED NEUTROPHIL # 5.6 TH/MM3 (1.8-7.7); BASOPHIL # 0.1 TH/MM3 (0-0.2); BASOPHIL % 0.8 % (0.0-2.0); EOSINOPHIL # 0.3 TH/MM3 (0-0.4); EOSINOPHIL % 3.6 % (0.0-4.0); HEMATOCRIT 33.4 % (35.0-46.0); HEMOGLOBIN 11.6 GM/DL (11.6-15.3); LYMPH % 14.4 % (9.0-44.0); LYMPHOCYTE # 1.1 TH/MM3 (1.0-4.8); MEAN CORPUSCULAR HEMOGLOBIN 32.3 PG (27.0-34.0); MEAN CORPUSCULAR HGB CONC 34.7 % (32.0-36.0); MONO % 5.8 % (0.0-8.0); MONOCYTE # 0.4 TH/MM3 (0-0.9); NEUT % 75.4 % (16.0-70.0); PLATELET COUNT 205 TH/MM3 (150-450); RED CELL DISTRIBUTION WIDTH 14.3 % (11.6-17.2); WHITE BLOOD COUNT 7.5 TH/MM3 (4.0-11.0)
[2017-12-05 14:33] LABS: CALCIUM 8.2 MG/DL (8.5-10.1)
[2017-12-05 14:34] LABS: BICARBONATE 28.1 MEQ/L (21.0-32.0)
--- NOTE | 2017-12-05 14:36 | RADRPT ---
EXAM DATE/TIME: 12/05/2017 14:16 [facility] COMPARISON: CHEST SINGLE AP, November 29, 2017, 17:38. INDICATIONS : Short of breath. MEDICAL HISTORY : Hypertension. Chronic obstructive pulmonary disease. Myocardial infarction. SURGICAL HISTORY : None. ENCOUNTER: Initial ACUITY: 1 week PAIN SCORE: 0/10 LOCATION: Bilateral chest FINDINGS: A single view of the chest demonstrates the lungs to be symmetrically aerated without evidence of mas s, infiltrate or effusion. Mild cardiomegaly. No pulmonary vascular engorgement. Scoliotic curvature. Osseous structures are intact. CONCLUSION: Cardiomegaly without pulmonary vascular engorgement. Clear lungs. Darci Robbins Jr., MD on December 05, 2017 at 14:32 Board Certified Radiologist. This report was verified electronically.
[2017-12-05 15:00] VITALS: BP 103/59; PULSE 98; RESP 16; O2SAT 97
[2017-12-05] MEDS ORDERED: BENZ1CAP54 PO (15:13)
[2017-12-05 15:30] VITALS: BP 105/58; PULSE 97; RESP 18; O2SAT 97
[2017-12-05 16:30] VITALS: BP 111/62
[2017-12-05] MEDS ORDERED: LORazepam 0.5 MG TAB PO ONE (16:30)
--- NOTE | 2017-12-06 21:57 | EKG ---
Date Performed: 12/05/2017 Time Performed: 15:31:40 PTAGE: 87 years EKG: Sinus rhythm PATTERN CONSISTENT WITH PULMONARY DISEASE LEFT ANTERIOR FASCICULAR BLOCK NONSPECIFIC T-WAVE ABNORMAL ITY ABNORMAL ECG INTERPRETATION BASED ON A DEFAULT AGE OF 40 YEARS PREVIOUS TRACING : 12/05/2017 14.31 Since the prior tracing, there has been no significan t change DOCTOR: Moises Espino Interpretating Date/Time 12/06/2017 21:56:26
--- NOTE | 2017-12-06 22:05 | EKG ---
Date Performed: 12/05/2017 Time Performed: 14:31:13 PTAGE: 87 years EKG: Sinus rhythm POSSIBLE RIGHT VENTRICULAR CONDUCTION DELAY INFERIOR MYOCARDIAL INFARCTION ABNORMAL ECG PREVIOUS TRACING : 10/26/2017 04.18 Compared to prior tracing, DOCTOR: Moises Espino Interpretating Date/Time 12/06/2017 22:02:45
== END 2017-12-05 16:30 | disposition home or self-care (01) ==
LOC: PHED 13:12
DX: R06.00 Dyspnea, unspecified (principal); R05 Cough; F41.0 Panic disorder [episodic paroxysmal anxiety]; R94.31 Abnormal electrocardiogram [ECG] [EKG]; I10 Essential (primary) hypertension; J44.9 Chronic obstructive pulmonary disease, unspecified; Z79.82 Long term (current) use of aspirin
CPT/HCPCS: 71045; 80048; 85025; 93005; 94664; 99285

== ENCOUNTER 2017-12-06 17:00 | Inpatient (IN) | payer OTHER, MEDICARE ==
[2017-12-06] VITALS (11 sets, daily range): BP systolic 98–135; BP diastolic 52–72; PULSE 93–103; RESP 18–22; TEMP 98.4; O2SAT 91–96
[~2017-12-06] VITALS: Ht 160 cm; Wt 48.7 kg
[~2017-12-06 17:00] MED LIST changes: +BENZ1CAP54 PO; -WALKER WHEELS/F1 MIS; -ZOFR4TAB3 SL
[2017-12-06] MEDS ORDERED: SODIUM CHLORIDE 0.9% FLUSH 10 ML FLUSH IVF PRN (18:45)
[2017-12-06] MEDS ORDERED: methylPREDNISolone SOD SUCC 125 MG/2 ML VIAL IV PUSH ONE (18:45)
[2017-12-06] MEDS: RESP: ALBUTEROL 2.5 MG/IPRATROPIUM 0.5 MG NEB (SCH) INH (18:52)
--- NOTE | 2017-12-06 19:16 | RADRPT ---
EXAM DATE/TIME: 12/06/2017 19:10 [facility] COMPARISON: No previous studies available for comparison. INDICATIONS : Shortness of breath, difficulty breathing MEDICAL HISTORY : Hypertension. Chronic obstructive pulmonary disease. Myocardial infarction SURGICAL HISTORY : None. ENCOUNTER: Initial ACUITY: 1 week PAIN SCORE: 0/10 LOCATION: Bilateral chest FINDINGS: The lungs are clear without infiltrate, nodule, or mass. There is no appreciable pleural effusion fo r technique. Heart and mediastinum are unremarkable. There are atherosclerotic calcifications of the aorta due to chronic atherosclerotic disease. There is osteopenia with mild wedging of upper thoraci c vertebrae most likely osteoporotic and chronic. CONCLUSION: No acute cardiopulmonary disease. Sagar Vazquez MD on December 06, 2017 at 19:13 Board Certified Radiologist. This report was verified electronically.
[2017-12-06 19:32] LABS: AUTOMATED NEUTROPHIL # 8.7 TH/MM3 (1.8-7.7); BASOPHIL # 0.3 TH/MM3 (0-0.2); BASOPHIL % 2.6 % (0.0-2.0); EOSINOPHIL # 0.1 TH/MM3 (0-0.4); EOSINOPHIL % 1.2 % (0.0-4.0); HEMATOCRIT 37.6 % (35.0-46.0); HEMOGLOBIN 12.4 GM/DL (11.6-15.3); LYMPH % 10.6 % (9.0-44.0); LYMPHOCYTE # 1.1 TH/MM3 (1.0-4.8); MEAN CELL VOLUME 93.2 FL (80.0-100.0); MEAN CORPUSCULAR HEMOGLOBIN 30.8 PG (27.0-34.0); MEAN PLATELET VOLUME 10.1 FL (7.0-11.0); MONO % 5.9 % (0.0-8.0); MONOCYTE # 0.6 TH/MM3 (0-0.9); NEUT % 79.7 % (16.0-70.0); PLATELET COUNT 207 TH/MM3 (150-450); RED BLOOD COUNT 4.03 MIL/MM3 (4.00-5.30); RED CELL DISTRIBUTION WIDTH 13.8 % (11.6-17.2); WHITE BLOOD COUNT 10.8 TH/MM3 (4.0-11.0)
--- NOTE | 2017-12-06 19:45 | PD ---
HPI Chief Complaint: Anxiety Time Seen by Provider: 19:42 Travel History International Travel<30 days: No Contact w/Intl Traveler<30days: No Traveled to known affect area: No History of Present Illness HPI 87-year-old female presents to the emergency department by private vehicle for evaluation of shortness of breath with wheezing with history of COPD and states that she has anxiety. Patient reportedly is visiting the area from [facility] and where she is staying seems to precipitate exacerbation of her COPD. Patient states that she was here yesterday for same complaint and was discharged feeling improved but was returning to her current resident symptoms seem to recur. No report of orthopnea or PND. No report of chest pain. No report of hemoptysis. No report of febrile illness or phlegm production. PFSH Past Medical History Hx Anticoagulant Therapy: Yes (BABY ASA DAILY) Cardiovascular Problems: Yes (htn on meds) COPD: Yes Diminished Hearing: Yes Hypertension: Yes Respiratory: Yes (copd) Immunizations Current: Yes Myocardial Infarction: Yes Tetanus Vaccination: Unknown Influenza Vaccination: Yes ?: Not Menopausal: Yes Past Surgical History Other Surgery: Yes (polyps removed) Social History Alcohol Use: No Tobacco Use: No Substance Use: No Allergies-Medications (Allergen,Severity, Reaction): Coded Allergies: No Known Allergies (Verified Allergy, Unknown, 12/06/17) Reported Meds & Prescriptions Reported Meds & Active Scripts Active Benzonatate 100 Mg Cap 100 Mg PO TID PRN Meclizine (Meclizine HCl) 25 Mg Tab 25 Mg PO TID PRN Ventolin Hfa 18 GM Inh (Albuterol Sulfate) 90 Mcg/Act Aer 2 Puff INH Q6H PRN [Budeson-Formot 160-4.5 Mcg Inh] 60 PUFF Aero 2 Puff INH Q12HR Reported Vitamin D3 (Cholecalciferol) 1,000 Unit Tab 1,000 Units PO DAILY Enalapril (Enalapril Maleate) 5 Mg Tab 5 Mg PO DAILY Aspirin Low Dose (Aspirin) 81 Mg Chew 81 Mg PO DAILY Vesicare (Solifenacin) 5 Mg Tab 5 Mg PO DAILY Review of Systems Except as stated in HPI: all other systems reviewed are Neg General / Constitutional: No: Fever HENT: No: Congestion Cardiovascular: No: Chest Pain or Discomfort Respiratory: Positive: Cough, Shortness of Breath, Wheezing, No: Orthopnea Gastrointestinal: No: Nausea, Vomiting, Abdominal Pain Genitourinary: No: Flank Pain Musculoskeletal: No: Myalgias, Arthralgias, Cramping, Edema, Pain Skin: No Rash Neurologic: No: Weakness, Dizziness, Syncope Psychiatric: Positive: Anxiety Hematologic/Lymphatic: No: Easy Bruising Physical Exam Narrative GENERAL: Well-developed elderly female in mild respiratory distress receiving DuoNeb updrafts. Room air O2 saturation 91-93% SKIN: Warm and dry. HEAD: Normocephalic. EYES: No scleral icterus. No injection or drainage. NECK: Supple, trachea midline. No JVD or lymphadenopathy. CARDIOVASCULAR: Regular rate and rhythm without murmurs, gallops, or rubs. RESPIRATORY: Breath sounds equal bilaterally with expiratory wheezing and rhonchi. No accessory muscle use. GASTROINTESTINAL: Abdomen soft, non-tender, nondistended. MUSCULOSKELETAL: No cyanosis, or edema. BACK: Nontender without obvious deformity. No CVA tenderness. Data Data Last Documented VS Vital Signs Date Time Temp Pulse Resp B/P (MAP) Pulse Ox O2 Delivery O2 Flow Rate FiO2 12/06/17 20:00 99 20 112/56 (74) 94 Room Air 12/06/17 18:55 21 12/06/17 17:19 98.4 Orders Orders Complete Blood Count With Diff (12/06/17 18:40) Comprehensive Metabolic Panel (12/06/17 18:40) Magnesium (Mg) (12/06/17 18:40) Influenzae A/B Antigen (12/06/17 18:40) Blood Culture (12/06/17 18:40) Iv Access Insert/Monitor (12/06/17 18:40) Electrocardiogram (12/06/17 18:40) Ecg Monitoring (12/06/17 18:40) Oximetry (12/06/17 18:40) Oxygen Administration (12/06/17 18:40) Chest, Pa & Lat (12/06/17 18:40) Sodium Chloride 0.9% Flush (Ns Flush) (12/06/17 18:45) Methylprednisolone So Succ Inj (Solumedr (12/06/17 18:45) Albuterol-Ipratropium Neb (Duoneb Neb) (12/06/17 18:45) Benzonatate (Tessalon) (12/06/17 20:00) Urinalysis - C+S If Indicated (12/06/17 19:48) Troponin I (12/06/17 19:15) Act Partial Throm Time (Ptt) (12/06/17 21:07) Prothrombin Time / Inr (Pt) (12/06/17 21:07) Nitroglycerin 2% Oint (Nitroglycerin 2% (12/06/17 21:15) Sodium Chlor 0.9% 250 Ml Inj (Ns 250 Ml (12/06/17 21:15) B-Type Natriuretic Peptide (12/06/17 21:12) Albuterol-Ipratropium Neb (Duoneb Neb) (12/06/17 21:15) Labs Laboratory Tests Test 12/06/17 19:15 White Blood Count 10.8 TH/MM3 Red Blood Count 4.03 MIL/MM3 Hemoglobin 12.4 GM/DL Hematocrit 37.6 % Mean Corpuscular Volume 93.2 FL Mean Corpuscular Hemoglobin 30.8 PG Mean Corpuscular Hemoglobin Concent 33.0 % Red Cell Distribution Width 13.8 % Platelet Count 207 TH/MM3 Mean Platelet Volume 10.1 FL Neutrophils (%) (Auto) 79.7 % Lymphocytes (%) (Auto) 10.6 % Monocytes (%) (Auto) 5.9 % Eosinophils (%) (Auto) 1.2 % Basophils (%) (Auto) 2.6 % Neutrophils # (Auto) 8.7 TH/MM3 Lymphocytes # (Auto) 1.1 TH/MM3 Monocytes # (Auto) 0.6 TH/MM3 Eosinophils # (Auto) 0.1 TH/MM3 Basophils # (Auto) 0.3 TH/MM3 CBC Comment DIFF FINAL Differential Comment Blood Urea Nitrogen 18 MG/DL Creatinine 1.20 MG/DL Random Glucose 107 MG/DL Total Protein 7.2 GM/DL Albumin 3.5 GM/DL Calcium Level 9.0 MG/DL Magnesium Level 1.4 MG/DL Alkaline Phosphatase 84 U/L Aspartate Amino Transf (AST/SGOT) 39 U/L Alanine Aminotransferase (ALT/SGPT) 27 U/L Total Bilirubin 0.3 MG/DL Sodium Level 143 MEQ/L Potassium Level 4.7 MEQ/L Chloride Level 108 MEQ/L Carbon Dioxide Level 29.4 MEQ/L Anion Gap 6 MEQ/L Estimat Glomerular Filtration Rate 42 ML/MIN Troponin I 0.28 NG/ML MDM Medical Decision Making Medical Screen Exam Complete: Yes Emergency Medical Condition: Yes Medical Record Reviewed: Yes Interpretation(s) EKG sinus tachycardia rate 102 QS inferiorly age-indeterminate however does have nonspecific ST-T wave changes anteriorly V3 V4 and V5 less than 1 mm elevation not noted on prior EKG 10/26/17 Last Impressions Chest X-Ray 12/06/17 1840 Signed Impressions: Service Date/Time: Wednesday, December 06, 2017 19:10 - CONCLUSION: No acute cardiopulmonary disease. Sagar Vazquez MD CBC & BMP Diagram 12/06/17 19:15 Total Protein 7.2, Albumin 3.5, Calcium Level 9.0 #, Magnesium Level 1.4 L, Alkaline Phosphatase 84, Aspartate Amino Transf (AST/SGOT) 39 H, Alanine Aminotransferase (ALT/SGPT) 27, Total Bilirubin 0.3 Vital Signs Date Time Temp Pulse Resp B/P (MAP) Pulse Ox O2 Delivery O2 Flow Rate FiO2 12/06/17 20:00 99 20 112/56 (74) 94 Room Air 12/06/17 19:00 103 22 125/66 (85) 94 Room Air 12/06/17 19:00 103 22 12/06/17 19:00 103 22 125/66 (85) 94 Room Air 12/06/17 18:55 91 21 12/06/17 17:19 98.4 103 18 135/67 (89) 94 Troponin I: 0.28, elevated Differential Diagnosis Dyspnea, exacerbation COPD, CHF, ACS, MD, pneumonia, PE Narrative Course Patient placed on registered nurse cardiac telemetry with continuous pulse oximetry patient had been administered to DuoNeb [place] and Solu-Medrol prior to my arrival however patient with obvious extra Tory wheezes and rhonchi to auscultation patient resting comfortably although still shows some work of breathing additional DuoNeb updraft administered EKG reviewed and identified to have QS inferiorly which was previously noted but has mild less than [address] elevation anteriorly in V3 V4 and V5; patient again interviewed and continues to deny any chest pain neck and jaw shoulder arm back or abdominal pain. Chest x-ray reveals no acute process per reading radiologist and reviewed by me Troponin I is elevated 0.28 suspect that non-STEMI is contributing to patient's COPD exacerbation; patient will be admitted for ongoing management aspirin 162 mg administered also Nitropaste 1/2 inch to chest wall administered coagulation studies obtained and heparinization ordered; admitting MD wants to order the heparin Physician Communication Physician Communication discussed with Dr Elizondo admit for acs/nstemi Diagnosis Primary Impression: ACS (acute coronary syndrome) Additional Impression: COPD (chronic obstructive pulmonary disease) Qualified Codes: J44.9 - Chronic obstructive pulmonary disease, unspecified Admitting Information Admitting Physician Requests: Admit Mary Lou Ceballos MD Dec 06, 2017 19:45
[2017-12-06] MEDS ORDERED: BENZONATATE 100 MG CAP PO ONE (20:00)
[2017-12-06 20:16] LABS: ALBUMIN 3.5 GM/DL (3.4-5.0); ALKALINE PHOSPHATASE 84 U/L (45-117); ALT (GPT) 27 U/L (10-53); AST (GOT) 39 U/L (15-37); BICARBONATE 29.4 MEQ/L (21.0-32.0); BLOOD UREA NITROGEN 18 MG/DL (7-18); CHLORIDE 108 MEQ/L (98-107); GLOMERULAR FILTRATION RATE 42 ML/MIN (>89); GLUCOSE,RANDOM 107 MG/DL (74-106); MAGNESIUM 1.4 MG/DL (1.5-2.5); SODIUM (NA) 143 MEQ/L (136-145); TOTAL BILIRUBIN ADULT 0.3 MG/DL (0.2-1.0); TOTAL PROTEIN 7.2 GM/DL (6.4-8.2); TROPONIN I 0.28 NG/ML (0.02-0.05)
[2017-12-06] MEDS ORDERED: SODIUM CHLOR 0.9% 250 ML INJ 250 ML IV ONE (21:15)
[2017-12-06] MEDS ORDERED: RESP: ALBUTEROL 2.5 MG/IPRATROPIUM 0.5 MG NEB (SCH) NEB ONE (21:15)
[2017-12-06] MEDS ORDERED: NITROGLYCERIN 2% OINT 1 GM PACKET TOPICAL ONE (21:15)
[2017-12-06] MEDS ORDERED: NALOXONE HCL 0.4 MG/ML AMP IV PUSH PRN (21:30)
[2017-12-06] MEDS ORDERED: SODIUM CHLORIDE 0.9% FLUSH 10 ML FLUSH IV FLUSH PRN (21:30)
[2017-12-06] MEDS ORDERED: HEPARIN-D5W 25,000 U/250 ML 250 ML IV PRN (21:30)
[2017-12-06] MEDS ORDERED: HEPARIN SODIUM - IV 10,000 UNITS/10 ML VIAL IV PUSH ONE (21:30)
[2017-12-06] MEDS: RESP: ALBUTEROL 2.5 MG/IPRATROPIUM 0.5 MG NEB (SCH) NEB (21:45)
[2017-12-06 21:57] LABS: INTERNATIONAL NORMALIZED RATIO 1.1 RATIO
[2017-12-07] VITALS (16 sets, daily range): BP systolic 100–138; BP diastolic 54–73; PULSE 81–118; RESP 18–37; TEMP 97.8–98.2; O2SAT 94–99
[2017-12-07] MEDS ORDERED: FUROSEMIDE 20 MG/2 ML VIAL IV PUSH ONE (01:00)
[2017-12-07 01:42] LABS: TROPONIN I 0.22 NG/ML (0.02-0.05)
[2017-12-07] MEDS: RESP: ALBUTEROL 2.5 MG/IPRATROPIUM 0.5 MG NEB (SCH) NEB ×4 (03:00→20:32)
[2017-12-07 03:03] LABS: BILIRUBIN, URINE NEG (NEG); BLOOD, URINE NEG (NEG); GLUCOSE,URINE NEG (NEG); KETONE, URINE NEG (NEG); NITRITE,URINE NEG (NEG); PH, URINE 5.5 (5.0-8.5); URINE LEUKOCYTE ESTERASE NEG (NEG)
[2017-12-07 03:04] LABS: URINE COLOR YELLOW (YELLW/STRAW)
[2017-12-07 03:07] LABS: RBC, URINE 0-2 /hpf (0-3); SQUAMOUS EPITHELIAL CELL URINE 0-5 /hpf (0-5); WBC, URINE 0-2 /hpf (0-5)
[2017-12-07] MEDS ORDERED: HEPARIN SODIUM - IV 10,000 UNITS/10 ML VIAL IV PUSH PRN ×2 (03:30)
[2017-12-07 05:52] LABS: AUTOMATED NEUTROPHIL # 4.4 TH/MM3 (1.8-7.7); BASOPHIL % 0.2 % (0.0-2.0); EOSINOPHIL % 0.1 % (0.0-4.0); HEMATOCRIT 33.2 % (35.0-46.0); HEMOGLOBIN 10.7 GM/DL (11.6-15.3); LYMPH % 9.3 % (9.0-44.0); LYMPHOCYTE # 0.4 TH/MM3 (1.0-4.8); MEAN CORPUSCULAR HGB CONC 32.3 % (32.0-36.0); MEAN PLATELET VOLUME 10.6 FL (7.0-11.0); MONO % 0.3 % (0.0-8.0); NEUT % 90.1 % (16.0-70.0); PLATELET COUNT 181 TH/MM3 (150-450); RED BLOOD COUNT 3.57 MIL/MM3 (4.00-5.30); RED CELL DISTRIBUTION WIDTH 13.8 % (11.6-17.2); WHITE BLOOD COUNT 4.8 TH/MM3 (4.0-11.0)
[2017-12-07 06:09] LABS: BICARBONATE 25.7 MEQ/L (21.0-32.0); CALCIUM 8.2 MG/DL (8.5-10.1); CREATININE 0.99 MG/DL (0.50-1.00)
[2017-12-07] MEDS: RESP: ALBUTEROL 2.5 MG/IPRATROPIUM 0.5 MG NEB (PRN) NEB (06:53)
[2017-12-07 07:54] LABS: TROPONIN I 0.17 NG/ML (0.02-0.05)
[2017-12-07] MEDS: SODIUM CHLORIDE 0.9% FLUSH 10 ML FLUSH IV FLUSH SCH ×2 (09:26→20:46)
--- NOTE | 2017-12-07 10:21 | HHI.HP ---
[facility]Staff Admission Diagnosis ACS/nstemi; copd Diagnoses: Chief Complaint: Short of breath Travel History International Travel<30 Days: No Contact w/Intl Traveler <30 Da: No Traveled to Known Affected Are: No History of Present Illness 87 years old female with history of COPD hypertension presented to the ED complaining of worsening short of breath with cough no phlegm, patient stated she is visiting here from [facility]. Patient denied any orthopnea or PND she denies chest pain per se, in ED she was found to have increased troponin and BNP, no significant changes on EKG Review of Systems All systems reviewed and was positive for what is mentioned in history of present illness otherwise negative Past Family Social History Past Medical History As in history of HPI Past Surgical History Polyp removal Allergies: Coded Allergies: No Known Allergies (Verified Allergy, Unknown, 12/06/17) Family History Review with the patient,not aware of significant medical history runs in his family Social History Denied tobacco alcohol or illicit drug abuse Physical Exam Vital Signs Vital Signs Date Time Temp Pulse Resp B/P (MAP) Pulse Ox O2 Delivery O2 Flow Rate FiO2 12/07/17 09:42 93 18 120/68 (85) 99 Nasal Cannula 3.00 12/07/17 07:07 97.8 97 20 128/73 (91) 99 Nasal Cannula 2.00 12/07/17 07:07 20 12/07/17 06:54 99 Nasal Cannula 2.00 12/07/17 05:58 81 20 103/54 (70) 98 Nasal Cannula 2.00 12/07/17 04:41 84 20 100/57 (71) 97 Nasal Cannula 2.00 12/07/17 03:42 96 20 119/61 (80) 96 Nasal Cannula 2.00 12/07/17 02:45 86 20 103/62 (76) 95 Nasal Cannula 2.00 12/07/17 01:52 89 20 122/66 (84) 97 Nasal Cannula 2.00 12/07/17 01:18 96 Nasal Cannula 2.00 12/07/17 00:45 98 22 136/71 (92) 94 Room Air 12/06/17 23:30 95 20 103/62 (76) 94 Room Air 12/06/17 22:30 94 20 98/53 (68) 94 Room Air 12/06/17 22:25 93 20 104/55 (71) 94 Room Air 12/06/17 22:20 94 20 104/52 (69) 95 Room Air 12/06/17 22:15 96 20 106/56 (73) 96 Room Air 12/06/17 22:00 96 20 100/56 (71) 96 Room Air 12/06/17 21:00 99 20 110/72 (85) 94 Room Air 12/06/17 20:00 99 20 112/56 (74) 94 Room Air 12/06/17 19:00 103 22 125/66 (85) 94 Room Air 12/06/17 19:00 103 22 12/06/17 19:00 103 22 125/66 (85) 94 Room Air 12/06/17 18:55 91 21 12/06/17 17:19 98.4 103 18 135/67 (89) 94 Physical Exam GENERAL: This is a well-nourished, well-developed patient, in no apparent distress. SKIN: No rashes, warm and dry HEAD: Atraumatic. Normocephalic. EYES: Pupils equal round and reactive. Extraocular motions intact. No scleral icterus. ENT: Nose without bleeding, or drainage, Airway patent. NECK: Trachea midline. Supple, no JVD CARDIOVASCULAR: Regular rate and rhythm without murmurs, gallops, or rubs. RESPIRATORY: Bilateral wheezing wheezes, GASTROINTESTINAL: Abdomen soft, non-tender, nondistended. Positive bowel sounds MUSCULOSKELETAL: Extremities without clubbing, cyanosis, or edema. Pedal pulses appreciated NEUROLOGICAL: Awake and alert. Moves all extremity. Normal speech.no focal neurological deficit Laboratory Laboratory Tests Test 12/06/17 19:15 12/06/17 21:28 12/07/17 01:12 12/07/17 02:55 White Blood Count 10.8 Red Blood Count 4.03 Hemoglobin 12.4 Hematocrit 37.6 Mean Corpuscular Volume 93.2 Mean Corpuscular Hemoglobin 30.8 Mean Corpuscular Hemoglobin Concent 33.0 Red Cell Distribution Width 13.8 Platelet Count 207 Mean Platelet Volume 10.1 Neutrophils (%) (Auto) 79.7 Lymphocytes (%) (Auto) 10.6 Monocytes (%) (Auto) 5.9 Eosinophils (%) (Auto) 1.2 Basophils (%) (Auto) 2.6 Neutrophils # (Auto) 8.7 Lymphocytes # (Auto) 1.1 Monocytes # (Auto) 0.6 Eosinophils # (Auto) 0.1 Basophils # (Auto) 0.3 CBC Comment DIFF FINAL Differential Comment Blood Urea Nitrogen 18 Creatinine 1.20 Random Glucose 107 Total Protein 7.2 Albumin 3.5 Calcium Level 9.0 Magnesium Level 1.4 Alkaline Phosphatase 84 Aspartate Amino Transf (AST/SGOT) 39 Alanine Aminotransferase (ALT/SGPT) 27 Total Bilirubin 0.3 Sodium Level 143 Potassium Level 4.7 Chloride Level 108 Carbon Dioxide Level 29.4 Anion Gap 6 Estimat Glomerular Filtration Rate 42 Troponin I 0.28 0.22 Prothrombin Time 11.0 Prothromb Time International Ratio 1.1 Activated Partial Thromboplast Time 26.2 B-Type Natriuretic Peptide 3812 Total Creatine Kinase 173 Urine Color YELLOW Urine Turbidity CLEAR Urine pH 5.5 Urine Specific [place] 1.010 Urine Protein NEG Urine Glucose (UA) NEG Urine Ketones NEG Urine Occult Blood NEG Urine Nitrite NEG Urine Bilirubin NEG Urine Leukocyte Esterase NEG Urine RBC 0-2 Urine WBC 0-2 Urine Squamous Epithelial Cells 0-5 Urine Bacteria NONE Microscopic Urinalysis Comment CULT NOT INDICATED Test 12/07/17 05:15 12/07/17 07:10 White Blood Count 4.8 Red Blood Count 3.57 Hemoglobin 10.7 Hematocrit 33.2 Mean Corpuscular Volume 93.0 Mean Corpuscular Hemoglobin 30.0 Mean Corpuscular Hemoglobin Concent 32.3 Red Cell Distribution Width 13.8 Platelet Count 181 Mean Platelet Volume 10.6 Neutrophils (%) (Auto) 90.1 Lymphocytes (%) (Auto) 9.3 Monocytes (%) (Auto) 0.3 Eosinophils (%) (Auto) 0.1 Basophils (%) (Auto) 0.2 Neutrophils # (Auto) 4.4 Lymphocytes # (Auto) 0.4 Monocytes # (Auto) 0.0 Eosinophils # (Auto) 0.0 Basophils # (Auto) 0.0 CBC Comment DIFF FINAL Differential Comment Activated Partial Thromboplast Time 50.4 Blood Urea Nitrogen 18 Creatinine 0.99 Random Glucose 168 Calcium Level 8.2 Sodium Level 145 Potassium Level 4.3 Chloride Level 111 Carbon Dioxide Level 25.7 Anion Gap 8 Estimat Glomerular Filtration Rate 53 Total Creatine Kinase 147 Troponin I 0.17 Date/Time Source Procedure Growth Status 12/06/17 19:15 Blood Peripheral Aerobic Blood Culture Pending Received 12/06/17 19:15 Blood Peripheral Anaerobic Blood Culture Pending Received 12/06/17 19:15 Nasal Aspirate Influenza Types A,B Antigen (JASON) - Final NEGATIVE FOR FLU A AND B ANTIGEN.... Complete Result Diagram: 12/07/17 0515 12/07/17 0515 Imaging EKG sinus tachycardia rate 102 QS inferiorly age-indeterminate however does have nonspecific ST-T wave changes anteriorly V3 V4 and V5 less than 1 mm elevation not noted Last Impressions Chest X-Ray 12/06/17 1840 Signed Impressions: Service Date/Time: Wednesday, December 06, 2017 19:10 - CONCLUSION: No acute cardiopulmonary disease. MD Angelique Curiel VTE Risk Assessment [place] VTE Risk Assessment: Mod/High Risk (score >= 2) Caprini Risk Assessment Model Point Value = 1 Point Value = 2 Point Value = 3 Point Value = 5 Age 41-60 Minor surgery BMI > 25 kg/m2 Swollen legs Varicose veins or History of unexplained or recurrent spontaneous Oral contraceptives or hormone replacement Sepsis (< 1 month) Serious lung disease, including pneumonia (< 1 month) Abnormal pulmonary function Acute myocardial infarction Congestive heart failure (< 1 month) History of inflammatory bowel disease Medical patient at bed rest Age 61-74 Arthroscopic surgery Major open surgery (> 45 min) Laparoscopic surgery (> 45 min) Malignancy Confined to bed (> 72 hours) Immobilizing plaster cast Central venous access Age >= 75 History of VTE Family history of VTE Factor V Leiden Prothrombin [id number] Lupus anticoagulant Anticardiolipin antibodies Elevated serum homocysteine Heparin-induced thrombocytopenia Other congenital or acquired thrombophilia Stroke (< 1 month) Elective arthroplasty Hip, pelvis, or leg fracture Acute spinal cord injury (< 1 month) Prophylaxis Regimen Total Risk Factor Score Risk Level Prophylaxis Regimen 0-1 Low Early ambulation 2 Moderate Order ONE of the following: *Sequential Compression Device (SCD) *Heparin 5000 units SQ BID 3-4 Higher Order ONE of the following medications: *Heparin 5000 units SQ TID *Enoxaparin/Lovenox 40 mg SQ daily (WT < 150 kg, CrCl > 30 mL/min) *Enoxaparin/Lovenox 30 mg SQ daily (WT < 150 kg, CrCl > 10-29 mL/min) *Enoxaparin/Lovenox 30 mg SQ BID (WT < 150 kg, CrCl > 30 mL/min) AND/OR *Sequential Compression Device (SCD) 5 or more Highest Order ONE of the following medications: *Heparin 5000 units SQ TID (Preferred with Epidurals) *Enoxaparin/Lovenox 40 mg SQ daily (WT < 150 kg, CrCl > 30 mL/min) *Enoxaparin/Lovenox 30 mg SQ daily (WT < 150 kg, CrCl > 10-29 mL/min) *Enoxaparin/Lovenox 30 mg SQ BID (WT < 150 kg, CrCl > 30 mL/min) AND *Sequential Compression Device (SCD) Assessment and Plan Assessment and Plan 87 years old female presented with Elevated troponin which short of breath rule out ACS COPD exacerbation History of hypertension DVT prophylaxis, patient on heparin drip Plan: Admit patient Tatiana, she was given 1 dose of Solu-Medrol, will continue with 40 twice daily Start heparin drip Cardiology consult for heart cath Aspirin, morphine, lipid profile Physician Certification Order for Inpatient Services The services are ordered in accordance with Medicare regulations or non- Medicare payer requirements, as applicable. In the case of services not specified as inpatient-only, they are appropriately provided as inpatient services in accordance with the 2-midnight benchmark. days is the estimated time the patient will need to remain in the hospital, assuming treatment plan goals are met and no additional complications. Sury Patel MD Dec 07, 2017 10:20
[2017-12-07] MEDS ORDERED: HEPARIN-D5W 25,000 U/250 ML 250 ML IV PRN (12:00)
--- NOTE | 2017-12-07 12:49 | MB ---
cc: BETTIE GONZALEZ MD DATE OF CONSULTATION 12/07/2017 REASON FOR CONSULTATION Elevated troponins. HISTORY OF PRESENT ILLNESS The patient is a very pleasant 87-year-old woman who is visiting from [place] and she sees a official greeter there but she cannot tell me what heart problems he helps her with. She does have a history of COPD and presented with significant shortness of breath. Her BNP was found to be elevated and she was given IV Lasix. She now feels quite a bit better. She has no chest pain. Her shortness of breath is improved but still somewhat present. No lightheadedness, dizziness or syncope. PAST MEDICAL HISTORY 1. Unknown cardiac history. Though she does see a official greeter, she denies coronary disease. 2. COPD. CURRENT MEDICATIONS IV Heparin. ALLERGIES No known drug allergies. PHYSICAL EXAMINATION VITAL SIGNS: Afebrile, pulse 96, respiratory rate 24, BP 118/60, sating 96 on room air. GENERAL: A peasant well-appearing elderly woman in no distress. NECK: No JVD. LUNGS: Clear to auscultation bilaterally. CARDIOVASCULAR: Regular rhythm. No murmurs appreciated. ABDOMEN: Benign. EXTREMITIES: No edema. LABORATORY DATA Sodium 145, potassium 4.3, chloride 111, bicarb 25.7, BUN 18, creatinine 0.99, glucose 168. Troponin 0.28, 0.22, 0.17. BNP is 3812. White count 4.8, hematocrit 33.2, platelets 181. CHEST X-RAY No acute cardiopulmonary disease. EKG Sinus rhythm without any acute ST or T-wave changes. IMPRESSION AND PLAN 1. Mild CHF exacerbation. The patient had what is likely a mild congestive heart failure exacerbation expect diastolic in nature with an associated elevated BNP and mild troponin elevation. She has no chest pain so acute coronary syndrome seems unlikely. We will have her undergo a nuclear stress test as well as an echocardiogram. I think another dose or two of IV Lasix will be useful as well. 2. Her blood pressure is on the low side so I will not at this point add additional heart failure medications but they may be required depending on what her testing reveals. 3. Further recommendations based on these tests and her clinical course. Thank you again for the opportunity to participate in this patient's care. MD JUDY Barahona/ALTHEA /12:16 PM /12:37 PM
--- NOTE | 2017-12-07 14:53 | EKG ---
Date Performed: 12/06/2017 Time Performed: 18:50:28 PTAGE: 87 years EKG: SINUS TACHYCARDIA POSSIBLE RIGHT VENTRICULAR CONDUCTION DELAY LEFT ANTERIOR FASCICULAR BLOC K NONSPECIFIC ST & T-WAVE ABNORMALITY ABNORMAL ECG PREVIOUS TRACING : 12/05/2017 15.31 Since the prior tracing, there has been no significant irving DOCTOR: Jose Lopez Interpretating Date/Time 12/07/2017 14:46:51
--- NOTE | 2017-12-07 14:53 | EKG ---
Date Performed: 12/07/2017 Time Performed: 07:25:45 PTAGE: 87 years EKG: SINUS TACHYCARDIA LEFT ANTERIOR FASCICULAR BLOCK NONSPECIFIC T-WAVE ABNORMALITY ABNORMAL EC G PREVIOUS TRACING : 12/07/2017 01.24 Since the prior tracing, there has been no significant irving DOCTOR: Jose Lopez Interpretating Date/Time 12/07/2017 14:46:43
--- NOTE | 2017-12-07 14:55 | EKG ---
Date Performed: 12/07/2017 Time Performed: 01:24:54 PTAGE: 87 years EKG: Sinus rhythm ABNORMAL ECG PREVIOUS TRACING : 12/06/2017 18.50 Left anterior fascicular block. Rigt ventricular conduction delay. Poor R-wave progression. Largely unchanged from prior tracing. DOCTOR: Jose Lopez Interpretating Date/Time 12/07/2017 14:47:52
[2017-12-07] MEDS ORDERED: LORazepam 2 MG/ML VIAL IV PUSH ONE (16:00)
[2017-12-07] MEDS ORDERED: REGADENOSON INJ 0.4 MG/5 ML SYR IV ONE (17:03)
--- NOTE | 2017-12-07 17:36 | RADRPT ---
EXAM DATE/TIME: 12/07/2017 15:28 [place] COMPARISON: No previous studies available for comparison. INDICATIONS : Shortness of breath. Angina. DOSE: 25.5 mCi Tc99m Myoview at stress. 8.5 mCi Tc99m Myoview at rest. 0.4 mg Lexiscan STRESS SYMPTOMS: Shortness of breath. EJECTION FRACTION: 38% MEDICAL HISTORY : Hypertension. Myocardial infarction. Chronic obstructive pulmonary disease. SURGICAL HISTORY : Polyps removed. ENCOUNTER: Initial ACUITY: 1 day PAIN SCALE: 0/10 LOCATION: chest TECHNIQUE: The patient underwent pharmacologic stress with infusion of prescribed dose. Continuous ECG tracing was monitored during stress. Gated SPECT imaging was performed after stress and conventional SPECT i maging was performed at rest. The examination was performed on a SPECT/CT scanner, both attenuation and non-corrected datasets were reviewed. FINDINGS: DISTRIBUTION: The maximum perfused segment at stress is in the septal wall. PERFUSION STUDY: There is a large area of mildly to moderately diminished relative perfusion involving portions of the lateral wall, anterior wall and anteroseptal region extending to the cardiac apex. No definite evide nce of redistribution. GATED STUDY: Moderate diffuse apical hypokinesis. CONCLUSION: Sizable nonreversible apical perfusion abnormality with moderate LV dysfunction RISK CATEGORY: High (>3% Annual Mortality Rate) Papa Schafer MD on December 07, 2017 at 17:26 Board Certified Radiologist. This report was verified electronically.
[2017-12-07] MEDS ORDERED: NITROGLYCERIN 0.4 MG SL 25 TABS/BTL SL PRN (18:00)
[2017-12-07] MEDS: ALPRAZolam 0.25 MG TAB PO PRN (20:07)
[2017-12-07] MEDS ORDERED: HALOPERIDOL LACTATE 5 MG/ML AMP IV PUSH ONE (20:30)
[2017-12-07] MEDS: BUDESONIDE-FORMOTEROL 160/4.5 MCG INHALER INH SCH (20:45)
[2017-12-07] MEDS: CARVEDILOL 3.125 MG TAB PO SCH (20:46)
[2017-12-08] VITALS (16 sets, daily range): BP systolic 97–140; BP diastolic 46–79; PULSE 62–108; RESP 19–35; TEMP 96.6–98.4; O2SAT 95–100
[2017-12-08] MEDS: RESP: ALBUTEROL 2.5 MG/IPRATROPIUM 0.5 MG NEB (SCH) NEB ×3 (04:00→19:44)
[2017-12-08 05:05] LABS: AUTOMATED NEUTROPHIL # 10.2 TH/MM3 (1.8-7.7); BASOPHIL % 0.2 % (0.0-2.0); HEMATOCRIT 33.3 % (35.0-46.0); HEMOGLOBIN 10.8 GM/DL (11.6-15.3); LYMPH % 7.5 % (9.0-44.0); LYMPHOCYTE # 0.9 TH/MM3 (1.0-4.8); MEAN CELL VOLUME 93.7 FL (80.0-100.0); MEAN CORPUSCULAR HEMOGLOBIN 30.2 PG (27.0-34.0); MEAN CORPUSCULAR HGB CONC 32.3 % (32.0-36.0); MEAN PLATELET VOLUME 10.5 FL (7.0-11.0); MONOCYTE # 0.6 TH/MM3 (0-0.9); NEUT % 87.3 % (16.0-70.0); PLATELET COUNT 183 TH/MM3 (150-450); RED BLOOD COUNT 3.56 MIL/MM3 (4.00-5.30); RED CELL DISTRIBUTION WIDTH 13.9 % (11.6-17.2); WHITE BLOOD COUNT 11.7 TH/MM3 (4.0-11.0)
[2017-12-08 05:17] LABS: CALCIUM 8.6 MG/DL (8.5-10.1)
[2017-12-08 05:18] LABS: BICARBONATE 27.8 MEQ/L (21.0-32.0); MAGNESIUM 1.6 MG/DL (1.5-2.5)
[2017-12-08 05:21] LABS: CREATININE 1.1 MG/DL (0.50-1.00)
[2017-12-08] MEDS ORDERED: FUROSEMIDE 40 MG/4 ML VIAL IV PUSH SCH (09:00)
[2017-12-08] MEDS: BUDESONIDE-FORMOTEROL 160/4.5 MCG INHALER INH SCH ×2 (09:00→19:55)
[2017-12-08] MEDS: ALPRAZolam 0.25 MG TAB PO PRN ×2 (10:05→19:57)
[2017-12-08] MEDS: SODIUM CHLORIDE 0.9% FLUSH 10 ML FLUSH IV FLUSH SCH ×2 (10:07→19:56)
[2017-12-08] MEDS: CARVEDILOL 3.125 MG TAB PO SCH ×2 (10:07→19:57)
[2017-12-08] MEDS: LISINOPRIL 5 MG TAB PO SCH (10:09)
[2017-12-08] MEDS: ASPIRIN EC 81 MG TABEC PO SCH (10:10)
[2017-12-08] MEDS: TOLTERODINE TARTRATE 2 MG CAP LA PO SCH (10:10)
[2017-12-08 10:29] LABS: CHOLESTEROL/ HDL RATIO 2.68 RATIO; HDL CHOLESTEROL 58.8 MG/DL (40.0-60.0)
[2017-12-08] MEDS: RESP: ALBUTEROL 2.5 MG/IPRATROPIUM 0.5 MG NEB (PRN) NEB (10:40)
--- NOTE | 2017-12-08 14:42 | PD.CARD.PN ---
Subjective Subjective Remarks PT reports SHOB Objective Medications Current Medications Medications (Trade) Dose Ordered Sig/Jesica Route Start Time Stop Time Status Last Admin (NS Flush) 2 ml UNSCH PRN IV FLUSH 12/06/17 21:30 12/07/17 15:51 (NS Flush) 2 ml BID IV FLUSH 12/07/17 09:00 12/08/17 10:07 (Narcan Inj) 0.4 mg UNSCH PRN IV PUSH 12/06/17 21:30 (Duoneb Neb) 1 ampule Q2HR NEB PRN NEB 12/06/17 21:30 12/08/17 10:40 (Lasix Inj) 40 mg DAILY IV PUSH 12/08/17 09:00 12/08/17 10:06 (Xanax) 0.25 mg Q8H PRN PO 12/07/17 18:00 12/08/17 10:05 (Coreg) 3.125 mg Q12HR PO 12/07/17 21:00 12/08/17 10:07 (Nitrostat Sl) 0.4 mg Q5M PRN SL 12/07/17 18:00 (Prinivil) 2.5 mg DAILY PO 12/08/17 09:00 12/08/17 10:09 (Ecotrin Ec) 162 mg DAILY PO 12/08/17 09:00 12/08/17 10:10 (Detrol La) 2 mg DAILY PO 12/08/17 09:00 12/08/17 10:10 (Symbicort 160-4.5 Mcg Inh) 2 puff Q12HR INH 12/07/17 21:00 (Duoneb Neb) 1 ampule Q6HR WHILE AWAKE NEB NEB 12/08/17 14:00 12/08/17 14:33 Vital Signs / I&O Vital Signs Date Time Temp Pulse Resp B/P (MAP) Pulse Ox O2 Delivery O2 Flow Rate FiO2 12/08/17 10:43 97 Nasal Cannula 2.00 12/08/17 10:00 98 12/08/17 08:00 68 12/08/17 04:00 96.6 74 21 103/68 (80) 95 12/08/17 04:00 74 12/08/17 00:00 90 12/08/17 00:00 97.7 108 30 140/79 (99) 95 12/07/17 20:32 96 21 12/07/17 20:00 104 12/07/17 20:00 98.0 104 37 128/60 (82) 97 12/07/17 19:00 94 Room Air 12/07/17 17:24 97.8 118 29 138/70 (92) 95 12/07/17 17:24 118 I/O 12/07/17 12/07/17 12/07/17 12/08/17 12/08/17 12/08/17 07:00 15:00 23:00 07:00 15:00 23:00 Intake Total 88 ml 520 ml 0 ml Output Total 350 ml Balance -350 ml 88 ml 520 ml 0 ml Intake Oral 520 ml 0 ml IV Total 88 ml Output Urine Total 350 ml # Voids 2 2 3 # Bowel Movements 1 1 Physical Exam GENERAL: Well developed, well nourished. No acute distress congested cough HEENT: Jugular venous pressure is normal. CHEST: Lungs wheeze to auscultation bilaterally. Unlabored respiratory effort. CARDIAC: Regular rate and rhythm without S3, S4, or murmur. ABDOMEN: Soft, nontender, no hepatosplenomegaly. Bowel sounds present. EXTREMITIES: No clubbing, cyanosis, or edema. Laboratory Laboratory Tests Test 12/08/17 04:35 White Blood Count 11.7 TH/MM3 Red Blood Count 3.56 MIL/MM3 Hemoglobin 10.8 GM/DL Hematocrit 33.3 % Mean Corpuscular Volume 93.7 FL Mean Corpuscular Hemoglobin 30.2 PG Mean Corpuscular Hemoglobin Concent 32.3 % Red Cell Distribution Width 13.9 % Platelet Count 183 TH/MM3 Mean Platelet Volume 10.5 FL Neutrophils (%) (Auto) 87.3 % Lymphocytes (%) (Auto) 7.5 % Monocytes (%) (Auto) 5.0 % Eosinophils (%) (Auto) 0.0 % Basophils (%) (Auto) 0.2 % Neutrophils # (Auto) 10.2 TH/MM3 Lymphocytes # (Auto) 0.9 TH/MM3 Monocytes # (Auto) 0.6 TH/MM3 Eosinophils # (Auto) 0.0 TH/MM3 Basophils # (Auto) 0.0 TH/MM3 CBC Comment DIFF FINAL Differential Comment Blood Urea Nitrogen 28 MG/DL Creatinine 1.10 MG/DL Random Glucose 88 MG/DL Calcium Level 8.6 MG/DL Magnesium Level 1.6 MG/DL Sodium Level 145 MEQ/L Potassium Level 4.6 MEQ/L Chloride Level 112 MEQ/L Carbon Dioxide Level 27.8 MEQ/L Anion Gap 5 MEQ/L Estimat Glomerular Filtration Rate 47 ML/MIN B-Type Natriuretic Peptide 3113 PG/ML Triglycerides Level 74 MG/DL Cholesterol Level 158 MG/DL LDL Cholesterol 84 MG/DL HDL Cholesterol 58.8 MG/DL Cholesterol/HDL Ratio 2.68 RATIO Imaging Last 72 hours Impressions Myocardial Perfusion Scan Nuc Med 12/07/17 0000 Signed Impressions: Service Date/Time: November 15:28 - CONCLUSION: Sizable nonreversible apical perfusion abnormality with moderate LV dysfunction RISK CATEGORY: High (>3%% Annual Mortality Rate) Papa Schafer MD Chest X-Ray 12/06/17 1840 Signed Impressions: Service Date/Time: Wednesday, December 06, 2017 19:10 - CONCLUSION: No acute cardiopulmonary disease. Sagar Vazquez MD Assessment and Plan Problem List: (1) Dyspnea ICD Codes: R06.00 - Dyspnea, unspecified Plan: multifactorial COPD and CHF, URI? -seems mostly respiratory at this point (2) Acute systolic heart failure ICD Codes: I50.21 - Acute systolic (congestive) heart failure Plan: EF 38% on nuc; change to PO lasix -continue present meds -fluid and sodium restrict -on BB and jen -available PRN (3) Coronary artery disease ICD Codes: I25.10 - Atherosclerotic heart disease of [place] coronary artery without angina pectoris Plan: no ischemia on nuc (4) COPD (chronic obstructive pulmonary disease) ICD Codes: J44.9 - Chronic obstructive pulmonary disease, unspecified Status: Acute (5) Interstitial lung disease ICD Codes: J84.9 - Interstitial pulmonary disease, unspecified Problem Qualifiers (1) COPD (chronic obstructive pulmonary disease): Qualified Codes: J44.9 - Chronic obstructive pulmonary disease, unspecified Khushbu Chavarria MD Dec 08, 2017 14:42
--- NOTE | 2017-12-08 14:49 | HHI.PR ---
Subjective Remarks Patient seen and examined today for follow-up on shortness of breath and dyspnea. Patient is resting comfortably on room air at 97% O2 saturations. Patient is asking for breathing treatment at this time. Patient denies any chest pain, nausea, vomiting. Apparently patient had significant anxiety throughout the day yesterday and episodes of combativeness last evening in which she had to be given Haldol and placed in restraints. Upon evaluating the patient this morning she is quite pleasant. Does not appear to have any severe anxiety or combativeness. Restraints have been removed. Objective Vitals Vital Signs Date Time Temp Pulse Resp B/P (MAP) Pulse Ox O2 Delivery O2 Flow Rate FiO2 12/08/17 10:43 97 Nasal Cannula 2.00 12/08/17 10:00 98 12/08/17 08:00 68 12/08/17 04:00 96.6 74 21 103/68 (80) 95 12/08/17 04:00 74 12/08/17 00:00 90 12/08/17 00:00 97.7 108 30 140/79 (99) 95 12/07/17 20:32 96 21 12/07/17 20:00 104 12/07/17 20:00 98.0 104 37 128/60 (82) 97 12/07/17 19:00 94 Room Air 12/07/17 17:24 97.8 118 29 138/70 (92) 95 12/07/17 17:24 118 I/O 12/07/17 12/07/17 12/07/17 12/08/17 12/08/17 12/08/17 07:00 15:00 23:00 07:00 15:00 23:00 Intake Total 88 ml 520 ml 0 ml Output Total 350 ml Balance -350 ml 88 ml 520 ml 0 ml Intake Oral 520 ml 0 ml IV Total 88 ml Output Urine Total 350 ml # Voids 2 2 3 # Bowel Movements 1 1 Result Diagram: 12/08/17 0435 12/08/17434 Objective Remarks GENERAL: Well-developed, well-nourished, in no acute distress. alert and orientated to year, place, city, state HEENT: Head is normocephalic without any lesions or masses noted. Facial features are symmetric. Eyes: Extraocular muscles are intact. Conjunctivae were clear. NECK: Supple without any masses. Trachea midline no deviation. No JVD, CARDIAC: Regular rhythm, regular rate. S1/S2 are heard. No murmurs gallops or rubs. LUNGS: Clear to auscultation bilaterally. No wheeze, rhonchi or rales. No use of accessory muscles on inspiration or expiration. ABDOMEN: Soft, nontender. Nondistended. Bowel sounds heard in all 4 quadrants. No organomegaly or masses. Negative rebound, negative guarding EXTREMITIES: No edema, pulses are equal bilaterally. No cyanosis or clubbing NEUROLOGY: Mood and affect appear appropriate. Cranial nerves II through XII grossly intact. Moving all extremities, speech is clear Urinary Catheter: No Vascular Central Line Catheter: No A/P Assessment and Plan 87-year-old female who presented to the hospital because of shortness of breath and dyspnea, found to have elevated troponin Elevated troponin I, possible non-ST elevated myocardial infarction Troponin levels appear to be trending downward Patient was admitted on heparin IV, this has been discontinued Cardiology evaluated the patient and made recommendations Patient did undergo myocardial perfusion study which did show ejection fraction of 38%, a sizable nonreversible apical perfusion abnormality with moderate left ventricular dysfunction, high risk Patient was started on aspirin, Coreg, lisinopril, nitroglycerin as needed Lipid panel with LDL 84 Acute systolic congestive heart failure with elevated BNP Patient was admitted with Lasix 40 mg IV daily Patient has been started on beta drew and JAKE inhibitor Echocardiogram is pending Monitoring BNP Cardiomyopathy with ejection fraction 30%, unknown chronicity or etiology Could be ischemic due to the very large nonreversible apical perfusion abnormality on stress test Continue Coreg for cardiac benefit Chronic obstructive pulmonary disease Continue O2 supplementation maintain O2 sats greater than 92% Duo nebs every 6 hours while awake and every 2 hours as needed Symbicort inhaler Patient with wheezinG on exam, Will start solumedrol 40 mg Q 12 hrs DVT prevention Subcutaneous heparin Discharge Planning Case management consulted for discharge planning. Physical therapy at this time is recommending rehabilitation facility Gordy Harper Dec 08, 2017 14:49
[2017-12-08] MEDS: FUROSEMIDE 20 MG TAB PO SCH (18:00)
[2017-12-08] MEDS: methylPREDNISolone SOD SUCC 40 MG/1 ML VIAL IV PUSH SCH (19:56)
[2017-12-08] MEDS: HEPARIN SODIUM - SQ 10,000 UNITS/ML VIAL SQ SCH (19:57)
[2017-12-09] VITALS (10 sets, daily range): BP systolic 88–132; BP diastolic 50–78; PULSE 56–74; RESP 21–34; TEMP 97.4–98.7; O2SAT 94–100
[2017-12-09] MEDS ORDERED: SODIUM CHLORID 0.9% 500 ML INJ 500 ML IV ONE (03:15)
[2017-12-09] MEDS: RESP: ALBUTEROL 2.5 MG/IPRATROPIUM 0.5 MG NEB (PRN) NEB (04:12)
[2017-12-09 06:23] LABS: HEMATOCRIT 33.9 % (35.0-46.0); HEMOGLOBIN 10.9 GM/DL (11.6-15.3); MEAN CELL VOLUME 92.7 FL (80.0-100.0); MEAN CORPUSCULAR HEMOGLOBIN 29.8 PG (27.0-34.0); MEAN CORPUSCULAR HGB CONC 32.2 % (32.0-36.0); MEAN PLATELET VOLUME 10.5 FL (7.0-11.0); PLATELET COUNT 178 TH/MM3 (150-450); RED BLOOD COUNT 3.66 MIL/MM3 (4.00-5.30); RED CELL DISTRIBUTION WIDTH 13.5 % (11.6-17.2)
[2017-12-09] MEDS: RESP: ALBUTEROL 2.5 MG/IPRATROPIUM 0.5 MG NEB (SCH) NEB ×3 (07:41→19:09)
[2017-12-09] MEDS: HEPARIN SODIUM - SQ 10,000 UNITS/ML VIAL SQ SCH ×2 (08:18→19:45)
[2017-12-09] MEDS: SODIUM CHLORIDE 0.9% FLUSH 10 ML FLUSH IV FLUSH SCH ×2 (08:18→19:45)
[2017-12-09] MEDS: ASPIRIN EC 81 MG TABEC PO SCH (08:18)
[2017-12-09] MEDS: methylPREDNISolone SOD SUCC 40 MG/1 ML VIAL IV PUSH SCH (08:18)
[2017-12-09] MEDS: LISINOPRIL 5 MG TAB PO SCH (08:19)
[2017-12-09] MEDS: TOLTERODINE TARTRATE 2 MG CAP LA PO SCH ×2 (08:20→19:44)
[2017-12-09] MEDS: FUROSEMIDE 20 MG TAB PO SCH ×2 (08:20→18:00)
--- NOTE | 2017-12-09 08:27 | HHI.PR ---
Subjective Remarks Patient seen and examined today for follow-up on shortness of breath, patient states that she is doing much better. States that she feels that she is ready to go to rehabilitation at this time. Records reviewed, cardiology has signed off with outpatient follow-up. Vital signs are stable, afebrile. Objective Vitals Vital Signs Date Time Temp Pulse Resp B/P (MAP) Pulse Ox O2 Delivery O2 Flow Rate FiO2 12/09/17 07:42 100 Nasal Cannula 2.00 12/09/17 07:00 100 Nasal Cannula 2.00 28 12/09/17 06:00 97.9 60 22 90/53 (65) 99 12/09/17 04:00 64 12/09/17 04:00 97.8 64 26 99/57 (71) 100 12/09/17 02:00 97.7 66 26 107/72 (84) 99 12/09/17 00:00 97.8 60 22 88/50 (63) 100 12/09/17 00:00 74 12/08/17 22:00 97.8 68 21 99/46 (63) 99 12/08/17 20:00 99 Nasal Cannula 2.00 28 12/08/17 20:00 76 12/08/17 20:00 98.0 74 26 114/56 (75) 99 12/08/17 19:45 98 Nasal Cannula 3.00 12/08/17 17:00 72 29 100 12/08/17 16:00 98.4 76 29 100 12/08/17 16:00 76 12/08/17 15:00 90 32 97 12/08/17 14:00 64 25 97/56 (70) 95 12/08/17 13:00 62 21 12/08/17 12:00 64 12/08/17 12:00 98.2 64 20 100 12/08/17 11:00 92 35 99 12/08/17 10:43 97 Nasal Cannula 2.00 12/08/17 10:00 98 12/08/17 10:00 98 35 96 12/08/17 09:00 68 20 133/71 (91) I/O 12/08/17 12/08/17 12/08/17 12/09/17 12/09/17 12/09/17 07:00 15:00 23:00 07:00 15:00 23:00 Intake Total 0 ml 480 ml Balance 0 ml 480 ml Intake Oral 0 ml 480 ml # Voids 3 8 3 # Bowel Movements 1 0 Result Diagram: 12/09/17 0555 12/08/17 0435 Objective Remarks GENERAL: Well-developed, well-nourished, in no acute distress. alert and orientated to year, place, city, state HEENT: Head is normocephalic without any lesions or masses noted. Facial features are symmetric. Eyes: Extraocular muscles are intact. Conjunctivae were clear. NECK: Supple without any masses. Trachea midline no deviation. No JVD, CARDIAC: Regular rhythm, regular rate. S1/S2 are heard. No murmurs gallops or rubs. LUNGS: Clear to auscultation bilaterally. No wheeze, rhonchi or rales. No use of accessory muscles on inspiration or expiration. ABDOMEN: Soft, nontender. Nondistended. Bowel sounds heard in all 4 quadrants. No organomegaly or masses. Negative rebound, negative guarding EXTREMITIES: No edema, pulses are equal bilaterally. No cyanosis or clubbing NEUROLOGY: Mood and affect appear appropriate. Cranial nerves II through XII grossly intact. Moving all extremities, speech is clear Urinary Catheter: No Vascular Central Line Catheter: No A/P Assessment and Plan 87-year-old female who presented to the hospital because of shortness of breath and dyspnea, found to have elevated troponin Elevated troponin I, possible non-ST elevated myocardial infarction Troponin levels appear to be trending downward Patient was admitted on heparin IV, this has been discontinued Cardiology evaluated the patient and made recommendations available as needed Patient did undergo myocardial perfusion study which did show ejection fraction of 38%, a sizable nonreversible apical perfusion abnormality with moderate left ventricular dysfunction, high risk Patient was started on aspirin, Coreg, lisinopril, nitroglycerin as needed Lipid panel with LDL 84 Acute systolic congestive heart failure with elevated BNP Patient was admitted with Lasix 40 mg IV daily Patient has been started on beta drew and JAKE inhibitor Echocardiogram does indicate mildly reduced systolic function with ejection fraction 35-40%. Pulmonary arterial pressure 52 mmhg Monitoring BNP Cardiomyopathy with ejection fraction 38%, unknown chronicity or etiology Could be ischemic due to the very large nonreversible apical perfusion abnormality on stress test Continue Coreg for cardiac benefit Chronic obstructive pulmonary disease Continue O2 supplementation maintain O2 sats greater than 92% Duo nebs every 6 hours while awake and every 2 hours as needed Symbicort inhaler Discontinue Solu-Medrol, start prednisone 20 mg twice daily DVT prevention Subcutaneous heparin Discharge Planning Case management consulted for discharge planning. Physical therapy at this time is recommending rehabilitation facility Gordy Harper Dec 09, 2017 08:27
[2017-12-09] MEDS: CARVEDILOL 3.125 MG TAB PO SCH ×2 (09:06→19:45)
[2017-12-09] MEDS: BUDESONIDE-FORMOTEROL 160/4.5 MCG INHALER INH SCH ×2 (09:06→19:44)
--- NOTE | 2017-12-09 09:09 | ECHRPT ---
Indication: chf CONCLUSIONS Normal left ventricular size. The left ventricular systolic function is moderately reduced with an estimated ejection fraction in the range of 35-40%. [id number] mitral valve regurgitation. There is trace tricuspid valve regurgitation. The estimated pulmonary arterial pressure is 52 mmHg. BP: / HR: Rhythm: MEASUREMENTS (Male / Female) Normal Values Technical Quality:Good 2D ECHO LV Diastolic Diameter PLAX 3.6 cm 4.2 - 5.9 / 3.9 - 5.3 cm LV Systolic Diameter PLAX 3.1 cm IVS Diastolic Thickness 1.2 cm 0.6 - 1.0 / 0.6 - 0.9 cm LVPW Diastolic Thickness 1.1 cm 0.6 - 1.0 / 0.6 - 0.9 cm LV Relative Wall Thickness 0.6 RV Internal Dim ED PLAX 2.4 cm M-MODE Aortic Root Diameter MM 2.9 cm LA Systolic Diameter MM 3.2 cm LA Ao Ratio MM 1.1 AV Cusp Separation MM 1.6 cm DOPPLER Mitral E Point Velocity 66.1 cm/s Mitral A Point Velocity 76.5 cm/s Mitral E to A Ratio 0.9 LV E' Lateral Velocity 4.2 cm/s Mitral E to LV E' Lateral Ratio 15.8 LV E' Septal Velocity 5.5 cm/s Mitral E to LV E' Septal Ratio 12.1 TR Peak Velocity 323.0 cm/s TR Peak Gradient 41.7 mmHg Right Atrial Pressure 10.0 mmHg Pulmonary Artery Systolic Pressu 51.7 mmHg Right Ventricular Systolic Press 51.7 mmHg FINDINGS LEFT VENTRICLE Normal left ventricular size. The left ventricular systolic function is moderately reduced with an estimated ejection fraction in the range of 35-40%. RIGHT VENTRICLE Normal right ventricular size and systolic function. LEFT ATRIUM The left atrial size is normal. RIGHT ATRIUM The right atrial size is normal. ATRIAL SEPTUM Normal atrial septal thickness without atrial level shunting by limited color doppler interrogation. AORTA The aortic root and proximal ascending aorta are normal in size on limited imaging. MITRAL VALVE Structurally normal mitral valve. [id number] mitral valve regurgitation. AORTIC VALVE Trileaflet aortic valve. No aortic valve stenosis. No aortic valve regurgitation. TRICUSPID VALVE Structurally normal tricuspid valve. There is trace tricuspid valve regurgitation. The estimated pulmonary arterial pressure is 51.7 mmHg. PULMONARY VALVE No pulmonary valve regurgitation or stenosis. VESSELS The inferior vena cava is normal in size. PERICARDIUM No pericardial effusion. Alfredo Shoemaker MD, FACC (Electronically Signed) Final Date:09 December 2017 09:08
[2017-12-09] MEDS: ALPRAZolam 0.25 MG TAB PO PRN ×2 (11:00→19:45)
[2017-12-09] MEDS: predniSONE 20 MG TAB PO SCH (19:45)
[2017-12-10] VITALS (9 sets, daily range): BP systolic 107–143; BP diastolic 51–77; PULSE 54–69; RESP 19–28; TEMP 97.4–98.6; O2SAT 94–100
[2017-12-10] MEDS: RESP: ALBUTEROL 2.5 MG/IPRATROPIUM 0.5 MG NEB (SCH) NEB ×3 (07:26→20:55)
--- NOTE | 2017-12-10 07:44 | HHI.PR ---
Subjective Remarks Patient sees examined today for follow-up on shortness of breath, cardiomyopathy , COPD. Patient appears to be doing well. She is having some wheezing this morning. Notify nursing staff and patient that she needs to get out of bed and walking the halls more. Vital signs are stable, patient has good O2 saturations on room air. Objective Vitals Vital Signs Date Time Temp Pulse Resp B/P (MAP) Pulse Ox O2 Delivery O2 Flow Rate FiO2 12/10/17 07:28 100 Nasal Cannula 2.00 12/10/17 07:00 100 Nasal Cannula 2.00 12/10/17 04:00 54 12/10/17 04:00 54 24 107/52 (70) 100 12/10/17 00:00 98.0 62 19 115/51 (72) 98 12/10/17 00:00 62 12/09/17 20:00 98.7 68 21 132/69 (90) 97 12/09/17 20:00 68 12/09/17 19:12 94 Nasal Cannula 2.00 12/09/17 19:00 Nasal Cannula 2.00 12/09/17 16:00 98.0 60 28 103/57 (72) 99 12/09/17 16:00 60 12/09/17 12:00 72 12/09/17 12:00 97.7 72 34 113/78 (90) 96 12/09/17 08:00 56 12/09/17 08:00 97.4 60 25 102/60 (74) 100 I/O 12/09/17 12/09/17 12/09/17 12/10/17 12/10/17 12/10/17 07:00 15:00 23:00 07:00 15:00 23:00 Intake Total 480 ml 1000 ml Output Total 360 ml Balance 480 ml 1000 ml -360 ml Intake Oral 480 ml 1000 ml Output Urine Total 360 ml # Voids 3 8 # Bowel Movements 0 Result Diagram: 12/09/17 0555 12/08/17 0435 Objective Remarks GENERAL: Well-developed, well-nourished, in no acute distress. alert and orientated to year, place, city, state HEENT: Head is normocephalic without any lesions or masses noted. Facial features are symmetric. Eyes: Extraocular muscles are intact. Conjunctivae were clear. NECK: Supple without any masses. Trachea midline no deviation. No JVD, CARDIAC: Regular rhythm, regular rate. S1/S2 are heard. No murmurs gallops or rubs. LUNGS: End expiratory wheeze noted. No rhonchi or rales. No use of accessory muscles on inspiration or expiration. ABDOMEN: Soft, nontender. Nondistended. Bowel sounds heard in all 4 quadrants. No organomegaly or masses. Negative rebound, negative guarding EXTREMITIES: No edema, pulses are equal bilaterally. No cyanosis or clubbing NEUROLOGY: Mood and affect appear appropriate. Cranial nerves II through XII grossly intact. Moving all extremities, speech is clear Urinary Catheter: No Vascular Central Line Catheter: No A/P Assessment and Plan 87-year-old female who presented to the hospital because of shortness of breath and dyspnea, found to have elevated troponin Elevated troponin I, possible non-ST elevated myocardial infarction Troponin levels trended downward Patient was admitted on heparin IV, this has been discontinued Cardiology evaluated the patient and made recommendations available as needed Patient did undergo myocardial perfusion study which did show ejection fraction of 38%, a sizable nonreversible apical perfusion abnormality with moderate left ventricular dysfunction, high risk Patient was started on aspirin, Coreg, lisinopril, nitroglycerin as needed Lipid panel with LDL 84 Acute systolic congestive heart failure with elevated BNP Patient was admitted with Lasix 20 mg by mouth twice daily Echocardiogram does indicate mildly reduced systolic function with ejection fraction 35-40%. Pulmonary arterial pressure 52 mmhg Patient started on Coreg 3.125 mg every 12 hours, lisinopril 2.5 mg daily Medical management Cardiomyopathy with ejection fraction 38%, unknown chronicity or etiology Could be ischemic due to the very large nonreversible apical perfusion abnormality on stress test Continue Coreg for cardiac benefit Chronic obstructive pulmonary disease Continue O2 supplementation maintain O2 sats greater than 92% Duo nebs every 6 hours while awake and every 2 hours as needed Symbicort inhaler Continue prednisone 20 mg twice daily DVT prevention Subcutaneous heparin Discharge Planning Anticipate discharge planning to [facility] facility tomorrow morning Gordy Harper Dec 10, 2017 07:44
[2017-12-10] MEDS: BUDESONIDE-FORMOTEROL 160/4.5 MCG INHALER INH SCH ×2 (09:31→20:50)
[2017-12-10] MEDS: HEPARIN SODIUM - SQ 10,000 UNITS/ML VIAL SQ SCH ×2 (09:31→20:49)
[2017-12-10] MEDS: LISINOPRIL 5 MG TAB PO SCH (09:32)
[2017-12-10] MEDS: predniSONE 20 MG TAB PO SCH ×2 (09:33→20:50)
[2017-12-10] MEDS: CARVEDILOL 3.125 MG TAB PO SCH ×2 (09:33→20:49)
[2017-12-10] MEDS: FUROSEMIDE 20 MG TAB PO SCH ×2 (09:33→18:11)
[2017-12-10] MEDS: SODIUM CHLORIDE 0.9% FLUSH 10 ML FLUSH IV FLUSH SCH ×2 (09:35→20:50)
[2017-12-10] MEDS: ASPIRIN EC 81 MG TABEC PO SCH (09:35)
--- NOTE | 2017-12-10 11:52 | HHI.DCPOC ---
Discharge Care Plan Diagnosis: (1) Acute systolic heart failure (2) Dyspnea (3) COPD (chronic obstructive pulmonary disease) (4) Impaired mobility and activities of daily living Goals to Promote Your Health * To prevent worsening of your condition and complications * To maintain your health at the optimal level Directions to Meet Your Goals Take your medications as prescribed Follow your dietary instruction Follow activity as directed Keep your appointments as scheduled Take your immunizations and boosters as scheduled If your symptoms worsen call your PCP, if no PCP go to Urgent Care Center or Emergency Room Smoking is Dangerous to Your Health. Avoid second hand smoke Call the 24-hour hour crisis hotline for domestic abuse at Gordy Harper Dec 10, 2017 11:52
[2017-12-10] MEDS ORDERED: LISI-519 PO (11:58)
[2017-12-10] MEDS ORDERED: PRED10 PO (11:58)
[2017-12-10] MEDS ORDERED: FURO20TA PO (11:58)
[2017-12-10] MEDS ORDERED: CARV3.125 PO (11:58)
--- NOTE | 2017-12-10 12:01 | HHI.DS ---
Discharge Summary Admission Date Dec 08, 2017 at 14:38 Discharge Date: Dec 10, 2017 Admitting Diagnosis ACS/nstemi; copd (1) Cardiomyopathy ICD Code: I42.9 - Cardiomyopathy, unspecified (2) Acute on chronic systolic congestive heart failure ICD Code: I50.23 - Acute on chronic systolic (congestive) heart failure (3) ACS (acute coronary syndrome) ICD Code: I24.9 - Acute ischemic heart disease, unspecified Status: Acute (4) COPD (chronic obstructive pulmonary disease) ICD Code: J44.9 - Chronic obstructive pulmonary disease, unspecified Status: Acute Procedures Echocardiogram indicated normal left ventricular size, mildly reduced ejection fraction 35-40%. Trace to mild mitral valve regurg, trace of tricuspid valve regurg. Pulmonary arterial pressure 52 mmhg Brief History - From Admission 87 years old female with history of COPD hypertension presented to the ED complaining of worsening short of breath with cough no phlegm, patient stated she is visiting here from [facility]. Patient denied any orthopnea or PND she denies chest pain per se, in ED she was found to have increased troponin and BNP, no significant changes on EKG CBC/BMP: 12/09/17 0555 12/08/17 0435 Significant Findings Laboratory Tests Test 12/07/17 12:00 12/08/17 04:35 12/09/17 05:55 Activated Partial Thromboplast Time 46.1 SEC (24.3-30.1) White Blood Count 11.7 TH/MM3 (4.0-11.0) Red Blood Count 3.56 MIL/MM3 (4.00-5.30) 3.66 MIL/MM3 (4.00-5.30) Hemoglobin 10.8 GM/DL (11.6-15.3) 10.9 GM/DL (11.6-15.3) Hematocrit 33.3 % (35.0-46.0) 33.9 % (35.0-46.0) Neutrophils (%) (Auto) 87.3 % (16.0-70.0) Lymphocytes (%) (Auto) 7.5 % (9.0-44.0) Neutrophils # (Auto) 10.2 TH/MM3 (1.8-7.7) Lymphocytes # (Auto) 0.9 TH/MM3 (1.0-4.8) Blood Urea Nitrogen 28 MG/DL (7-18) Creatinine 1.10 MG/DL (0.50-1.00) Chloride Level 112 MEQ/L (98-107) Estimat Glomerular Filtration Rate 47 ML/MIN (>89) B-Type Natriuretic Peptide 3113 PG/ML (0-100) Imaging Last Impressions Myocardial Perfusion Scan Nuc Med 12/07/17 0000 Signed Impressions: Service Date/Time: November 15:28 - CONCLUSION: Sizable nonreversible apical perfusion abnormality with moderate LV dysfunction RISK CATEGORY: High (>3%% Annual Mortality Rate) Papa Schafer MD Chest X-Ray 12/06/17 1840 Signed Impressions: Service Date/Time: Wednesday, December 06, 2017 19:10 - CONCLUSION: No acute cardiopulmonary disease. Sagar Vazquez MD PE at Discharge GENERAL: Well-developed, well-nourished, in no acute distress. alert and orientated to year, place, city, state HEENT: Head is normocephalic without any lesions or masses noted. Facial features are symmetric. Eyes: Extraocular muscles are intact. Conjunctivae were clear. NECK: Supple without any masses. Trachea midline no deviation. No JVD, CARDIAC: Regular rhythm, regular rate. S1/S2 are heard. No murmurs gallops or rubs. LUNGS: End expiratory wheeze noted. No rhonchi or rales. No use of accessory muscles on inspiration or expiration. ABDOMEN: Soft, nontender. Nondistended. Bowel sounds heard in all 4 quadrants. No organomegaly or masses. Negative rebound, negative guarding EXTREMITIES: No edema, pulses are equal bilaterally. No cyanosis or clubbing NEUROLOGY: Mood and affect appear appropriate. Cranial nerves II through XII grossly intact. Moving all extremities, speech is clear Hospital Course Is a rather pleasant 87-year-old female with known history of COPD, hypertension who presented to the hospital because of worsening shortness of breath and dyspnea. Patient had workup done in found to have elevated troponin level and was admitted the hospital for acute coronary syndrome possible non-ST elevated myocardial infarction. Patient was admitted to the hospital on heparin IV. Patient had cardiology evaluation performed and is recommended patient undergo a myocardial perfusion study which did show ejection fraction of 38% and a sizable nonreversible apical perfusion abnormality with moderate left ventricular dysfunction. She was started on aspirin, Coreg, lisinopril, nitroglycerin. Patient did have significant shortness of breath, dyspnea on exertion and also had an elevated BNP. With the patient's low ejection fraction and likely acute systolic congestive heart failure. Echocardiogram was performed which did indicate we did systolic function with ejection fraction 35-40%, PA peak pressure 52 mmhg. Patient had not even started on protective treatment with beta drew, JAKE inhibitor, diuresis was continued. She tolerated treatment well. Patient did have wheezing during her stay in the hospital with underlying chronic obstructive pulmonary disease. Patient was started on Solu-Medrol with significant improvement. Patient with good O2 saturations on room air. They continue with nebulizer treatments. Patient had physical therapy evaluation recommend that the patient go to rehabilitation for physical therapy. Patient clinically stable this time. Cardiology did evaluate the patient and recommended medical management and follow-up as needed. Case management consulted for discharge planning. Plans to go to [facility] have been agreed upon by patient and daughter. Will plan discharge accordingly. Pt Condition on Discharge: Stable Discharge Disposition: Discharge to SNF Discharge Time: > 30 minutes Discharge Instructions DIET: Follow Instructions for: Heart Healthy Diet Activities you can perform: Regular-No Restrictions Follow up Referrals: Cardiology - 2 Weeks PCP Follow-up - 1 Week New Medications: Prednisone (Prednisone) 10 Mg Tab 10 MG PO DIRECTED for COPD, #21 TAB 0 Refills Prednisone 20 mg twice daily for 3 days, then prednisone 10 mg twice daily for 3 days then prednisone 10 mg daily for 3 days Carvedilol (Coreg) 3.125 Mg Tab 3.125 MG PO Q12HR for congestive heart failure, #60 TAB Furosemide (Furosemide) 20 Mg Tab 20 MG PO DAILY for congestive heart failure for 30 Days, #30 TAB Lisinopril (Lisinopril) 5 Mg Tab 2.5 MG PO DAILY for congestive heart failure for 30 Days, #15 TAB Continued Medications: Albuterol 18 GM Inh (Ventolin Hfa 18 GM Inh) 90 Mcg/Act Aer 2 PUFF INH Q6H PRN for SHORTNESS OF BREATH, #1 INHALER 0 Refills Aspirin (Aspirin Low Dose) 81 Mg Chew 81 MG PO DAILY, TAB 0 Refills Benzonatate (Benzonatate) 100 Mg Cap 100 MG PO TID PRN for COUGH, #20 CAP 0 Refills Cholecalciferol (Vitamin D3) 1,000 Unit Tab 1000 UNITS PO DAILY for Nutritional Supplement, #1 BOTTLE 0 Refills Meclizine (Meclizine) 25 Mg Tab 25 MG PO TID PRN for VERTIGO, #30 TAB 0 Refills Solifenacin (Vesicare) 5 Mg Tab 5 MG PO DAILY for Urinary Symptom Managemen, #30 TAB 0 Refills [Budeson-Formot 160-4.5 Mcg Inh] () 60 PUFF AERO 2 PUFF INH Q12HR for Shortness of Breath, #1 0 Refills Discontinued Medications: Enalapril (Enalapril) 5 Mg Tab 5 MG PO DAILY, #30 TAB 0 Refills Gordy Harper Dec 10, 2017 12:01
[2017-12-11] VITALS: BP 113/52; PULSE 80; RESP 16; TEMP 98.1; O2SAT 94
[2017-12-11 04:00] VITALS: BP 99/49; PULSE 70; RESP 18; TEMP 98.2; O2SAT 95
[2017-12-11 08:00] VITALS: BP 131/67; PULSE 58; RESP 16; TEMP 97.8; O2SAT 94
[2017-12-11] MEDS: RESP: ALBUTEROL 2.5 MG/IPRATROPIUM 0.5 MG NEB (SCH) NEB ×2 (08:37→15:00)
[2017-12-11 08:39] VITALS: O2SAT 97
[2017-12-11] MEDS: ASPIRIN EC 81 MG TABEC PO SCH (09:00)
[2017-12-11] MEDS: BUDESONIDE-FORMOTEROL 160/4.5 MCG INHALER INH SCH (09:47)
[2017-12-11] MEDS: HEPARIN SODIUM - SQ 10,000 UNITS/ML VIAL SQ SCH (09:47)
[2017-12-11] MEDS: TOLTERODINE TARTRATE 2 MG CAP LA PO SCH (09:48)
[2017-12-11] MEDS: LISINOPRIL 5 MG TAB PO SCH (09:48)
[2017-12-11] MEDS: predniSONE 20 MG TAB PO SCH (09:48)
[2017-12-11] MEDS: CARVEDILOL 3.125 MG TAB PO SCH (09:49)
[2017-12-11] MEDS: FUROSEMIDE 20 MG TAB PO SCH (09:49)
[2017-12-11] MEDS: SODIUM CHLORIDE 0.9% FLUSH 10 ML FLUSH IV FLUSH SCH (09:50)
--- NOTE | 2017-12-11 10:06 | HHI.PR ---
Subjective Remarks 87-year-old female who is seen in follow-up for shortness of breath, physical debility, acute coronary syndrome. Patient still very weak. Unable to go home. Patient had [facility]. However still awaiting insurance to authorize placement. Objective Vitals Vital Signs Date Time Temp Pulse Resp B/P (MAP) Pulse Ox O2 Delivery O2 Flow Rate FiO2 12/11/17 08:39 97 Nasal Cannula 1.00 12/11/17 08:00 97.8 58 16 131/67 (88) 94 12/11/17 07:30 94 Nasal Cannula 1.00 12/11/17 07:00 Room Air 12/11/17 04:00 98.2 70 18 99/49 (66) 95 12/11/17 00:00 98.1 80 16 113/52 (72) 94 12/10/17 20:55 98 Nasal Cannula 3.00 12/10/17 20:00 69 12/10/17 20:00 98.6 69 20 142/77 (98) 95 12/10/17 19:00 98 Nasal Cannula 3.00 12/10/17 16:00 66 12/10/17 16:00 66 28 143/74 (97) 97 12/10/17 12:00 66 12/10/17 12:00 98.1 66 26 125/65 (85) 97 I/O 12/10/17 12/10/17 12/10/17 12/11/17 12/11/17 12/11/17 07:00 15:00 23:00 07:00 15:00 23:00 Intake Total 720 ml Output Total 360 ml 450 ml 150 ml Balance -360 ml 270 ml -150 ml Intake Oral 720 ml Output Urine Total 360 ml 450 ml 150 ml # Bowel Movements 0 Result Diagram: 12/09/17 0555 12/08/17 0435 Objective Remarks GENERAL: Well-developed, well-nourished, in no acute distress. alert and orientated to year, place, city, state HEENT: Head is normocephalic without any lesions or masses noted. Facial features are symmetric. Eyes: Extraocular muscles are intact. Conjunctivae were clear. NECK: Supple without any masses. Trachea midline no deviation. No JVD, CARDIAC: Regular rhythm, regular rate. S1/S2 are heard. No murmurs gallops or rubs. LUNGS: End expiratory wheeze noted. No rhonchi or rales. No use of accessory muscles on inspiration or expiration. ABDOMEN: Soft, nontender. Nondistended. Bowel sounds heard in all 4 quadrants. No organomegaly or masses. Negative rebound, negative guarding EXTREMITIES: No edema, pulses are equal bilaterally. No cyanosis or clubbing NEUROLOGY: Mood and affect appear appropriate. Cranial nerves II through XII grossly intact. Moving all extremities, speech is clear Procedures Echocardiogram indicated normal left ventricular size, mildly reduced ejection fraction 35-40%. Trace to mild mitral valve regurg, trace of tricuspid valve regurg. Pulmonary arterial pressure 52 mmhg Urinary Catheter: No Vascular Central Line Catheter: No A/P Assessment and Plan 87-year-old female who presented to the hospital because of shortness of breath and dyspnea, found to have elevated troponin Elevated troponin I, possible non-ST elevated myocardial infarction Troponin levels trended downward Patient was admitted on heparin IV, this has been discontinued Cardiology evaluated the patient and made recommendations available as needed Patient did undergo myocardial perfusion study which did show ejection fraction of 38%, a sizable nonreversible apical perfusion abnormality with moderate left ventricular dysfunction, high risk Patient was started on aspirin, Coreg, lisinopril, nitroglycerin as needed Lipid panel with LDL 84 Acute systolic congestive heart failure with elevated BNP Patient was admitted with Lasix 20 mg by mouth twice daily Echocardiogram does indicate mildly reduced systolic function with ejection fraction 35-40%. Pulmonary arterial pressure 52 mmhg Patient started on Coreg 3.125 mg every 12 hours, lisinopril 2.5 mg daily Medical management Cardiomyopathy with ejection fraction 38%, unknown chronicity or etiology Could be ischemic due to the very large nonreversible apical perfusion abnormality on stress test Continue Coreg for cardiac benefit Chronic obstructive pulmonary disease Continue O2 supplementation maintain O2 sats greater than 92% Duo nebs every 6 hours while awake and every 2 hours as needed Symbicort inhaler Continue prednisone 20 mg twice daily DVT prevention Subcutaneous heparin Discharge Planning Patient has active discharge placed already. Awaiting insurance authorization for placement. Gordy Harper Dec 11, 2017 10:06
[2017-12-11 12:00] VITALS: BP 131/67; PULSE 58; RESP 18; TEMP 98.6; O2SAT 96
[2017-12-11 15:00] VITALS: O2SAT 92
== END 2017-12-11 16:07 | DRG 190 ==
LOC: PHED 17:00 → PHEDA 12-07 01:10 → PHEDH 12-07 06:13 → PHICU 12-07 10:40 → OBSVTOIN 12-08 14:38
PROVIDERS: ADMIT Hospitalist; ATTEND Hospitalist
DX: J44.1 Chronic obstructive pulmonary disease with (acute) exacerbation (principal); I50.43 Acute on chronic combined systolic (congestive) and diastolic (congestive) heart failure; J84.9 Interstitial pulmonary disease, unspecified; I24.9 Acute ischemic heart disease, unspecified; I42.9 Cardiomyopathy, unspecified; I11.0 Hypertensive heart disease with heart failure; I08.1 Rheumatic disorders of both mitral and tricuspid valves; I25.10 Atherosclerotic heart disease of native coronary artery without angina pectoris; I25.2 Old myocardial infarction; R26.9 Unspecified abnormalities of gait and mobility; H91.90 Unspecified hearing loss, unspecified ear; F41.9 Anxiety disorder, unspecified; Z78.1 Physical restraint status; R06.00 Dyspnea, unspecified; R05 Cough; F41.0 Panic disorder [episodic paroxysmal anxiety]; R94.31 Abnormal electrocardiogram [ECG] [EKG]; Z79.82 Long term (current) use of aspirin
CPT/HCPCS: 71046; 78452; 80048; 80053; 80061; 81001; 82550; 83735; 83880; 84484; 85025; 85027; 85610; 85730; 87040; 87804; 93005; 93017; 93306; 94640; 94664; 96361; 96365; 96366; 96375; A9502; G0378; G8987-GP; G8988-GP; J1630; J1644; J1940; J2060; J2785; J2920; J2930; J7040; J7050; J7512

== ENCOUNTER 2018-01-02 09:52 | Emergency (ER) | payer MEDICARE, OTHER ==
[~2018-01-02] VITALS: Ht 152.4 cm; Wt 50.0 kg
[~2018-01-02 09:52] MED LIST changes: +CARV3.125 PO; -ENAL5TAB PO; +FURO20TA PO; +LISI-519 PO; +PRED10 PO
[2018-01-02 10:01] VITALS: BP 149/66; PULSE 62; RESP 18; TEMP 97.7; O2SAT 95
[2018-01-02 10:48] LABS: AUTOMATED NEUTROPHIL # 3.7 TH/MM3 (1.8-7.7); BASOPHIL # 0.1 TH/MM3 (0-0.2); BASOPHIL % 0.9 % (0.0-2.0); EOSINOPHIL # 0.8 TH/MM3 (0-0.4); HEMATOCRIT 31.4 % (35.0-46.0); HEMOGLOBIN 10.6 GM/DL (11.6-15.3); LYMPHOCYTE # 1.3 TH/MM3 (1.0-4.8); MEAN CELL VOLUME 93.4 FL (80.0-100.0); MEAN CORPUSCULAR HEMOGLOBIN 31.7 PG (27.0-34.0); MEAN CORPUSCULAR HGB CONC 33.9 % (32.0-36.0); MEAN PLATELET VOLUME 9.9 FL (7.0-11.0); MONO % 7.3 % (0.0-8.0); MONOCYTE # 0.5 TH/MM3 (0-0.9); NEUT % 59.8 % (16.0-70.0); PLATELET COUNT 160 TH/MM3 (150-450); RED BLOOD COUNT 3.36 MIL/MM3 (4.00-5.30); RED CELL DISTRIBUTION WIDTH 14.3 % (11.6-17.2); WHITE BLOOD COUNT 6.4 TH/MM3 (4.0-11.0)
--- NOTE | 2018-01-02 11:01 | RADRPT ---
EXAM DATE/TIME: 01/02/2018 10:41 [place] COMPARISON: None. INDICATIONS : <<Fell last night. Left sided pain.>> ORAL CONTRAST: No oral contrast ingested. RADIATION DOSE: <<6.49>> CTDIvol (mGy) MEDICAL HISTORY : Hypertension. Chronic obstructive pulmonary disease. SURGICAL HISTORY : None. ENCOUNTER: Initial ACUITY: 2 days PAIN SCALE: 6/10 LOCATION: Left abdomen TECHNIQUE: Volumetric scanning of the abdomen and pelvis was performed. Using automated exposure control and ad justment of the mA and/or kV according to patient size, radiation dose was kept as low as reasonably achievable to obtain optimal diagnostic quality images. DICOM format image data is available electro nically for review and comparison. FINDINGS: There is a relatively nondisplaced lower left lateral rib fracture. There is no pneumothorax. Postinf lammatory changes seen at the lung bases with some scarring right lung base. No acute findings in the liver, spleen, adrenals or pancreas. Calcified gallstone noted in gallbladde r. There are nonobstructing bilateral renal calculi. Largest measures about 14 mm x 9 mm in the mid pole left kidney. Other sub-5 mm renal calculi present bilaterally. No pelvic mass is or free fluid. Multiple uterine calcifications noted. Bones appear osteopenic. Dege nerative change of the spine with mild scoliosis. CONCLUSION: 1. Relatively nondisplaced left lower lateral rib fracture without pneumothorax or pleural effusion. No acute traumatic injury identified within the abdomen or pelvis. 2. Multiple nonobstructing renal calculi as above. 3. Calcified gallstone in gallbladder. 4. Mild constipation. Corey Trejo MD on January 02, 2018 at 10:55 Board Certified Radiologist. This report was verified electronically.
--- NOTE | 2018-01-02 11:05 | RADRPT ---
EXAM DATE/TIME: 01/02/2018 10:49 [place] COMPARISON: CHEST PA & LAT, December 06, 2017, 19:10. INDICATIONS : Chest pain; fall lastnight. MEDICAL HISTORY : Hypertension. Myocardial infarction. Chronic obstructive pulmonary disease. SURGICAL HISTORY : None. ENCOUNTER: Initial ACUITY: 1 day PAIN SCORE: 6/10 LOCATION: Left chest FINDINGS: The heart is normal in size. There are chronic interstitial changes throughout both lungs. The medias tinal contours are within normal limits. The visualized bony structures demonstrate degenerative changes in the shoulders bilaterally but are otherwise intact. CONCLUSION: 1. Chronic interstitial changes. 2. No pneumothorax identified. Amador Mooney MD on January 02, 2018 at 11:02 Board Certified Radiologist. This report was verified electronically.
[2018-01-02 11:07] LABS: CHLORIDE 106 MEQ/L (98-107); SODIUM (NA) 143 MEQ/L (136-145)
[2018-01-02 11:12] LABS: CALCIUM 8.7 MG/DL (8.5-10.1)
[2018-01-02 11:13] LABS: ALBUMIN 3.2 GM/DL (3.4-5.0); BICARBONATE 30.2 MEQ/L (21.0-32.0); BLOOD UREA NITROGEN 34 MG/DL (7-18); GLUCOSE,RANDOM 82 MG/DL (74-106)
[2018-01-02 11:16] LABS: ALT (GPT) 14 U/L (10-53); AST (GOT) 25 U/L (15-37); GLOMERULAR FILTRATION RATE 42 ML/MIN (>89)
[2018-01-02 11:17] LABS: TOTAL BILIRUBIN ADULT 0.3 MG/DL (0.2-1.0); TOTAL PROTEIN 6.2 GM/DL (6.4-8.2)
[2018-01-02 11:19] LABS: ALKALINE PHOSPHATASE 63 U/L (45-117)
[2018-01-02 11:26] VITALS: BP 116/65; PULSE 58; RESP 16; O2SAT 96
[2018-01-02 11:30] LABS: BILIRUBIN, URINE NEG (NEG); BLOOD, URINE SMALL (NEG); GLUCOSE,URINE NEG (NEG); KETONE, URINE NEG (NEG); NITRITE,URINE NEG (NEG); PH, URINE 5.5 (5.0-8.5); URINE COLOR YELLOW (YELLW/STRAW); URINE LEUKOCYTE ESTERASE TRACE (NEG)
[2018-01-02 11:45] LABS: HYALINE CAST, URINE 0-2 /lpf (RARE)
[2018-01-02 11:46] LABS: RENAL EPITHELIAL CELLS 0-5 /hpf; SQUAMOUS EPITHELIAL CELL URINE 0-5 /hpf (0-5); WBC, URINE 0-2 /hpf (0-5)
[2018-01-02] MEDS ORDERED: EC-N375T PO (12:05)
--- NOTE | 2018-01-02 12:06 | PD ---
HPI Chief Complaint: Fall Time Seen by Provider: 10:04 Travel History International Travel<30 days: No Contact w/Intl Traveler<30days: No Traveled to known affect area: No History of Present Illness HPI This is an 87-year-old female presents to the ER complaining of fall at home. Patient was visiting her daughter from [facility] and was recently admitted for COPD exacerbation and was discharged home. Patient states that she slipped and fell on her left side and since then she has been complaining of left-sided rib pain. She denies any head trauma, no loss of consciousness, no chest pain or shortness of breath or pain anywhere else other than the left rib cage. PFSH Past Medical History Hx Anticoagulant Therapy: Yes (BABY ASA DAILY) Cardiovascular Problems: Yes (htn on meds) COPD: Yes Diminished Hearing: Yes Hypertension: Yes Respiratory: Yes (copd) Immunizations Current: Yes Myocardial Infarction: Yes Tetanus Vaccination: Unknown Influenza Vaccination: Yes ?: Not Menopausal: Yes Past Surgical History Other Surgery: Yes (polyps removed) Social History Alcohol Use: No Tobacco Use: No Substance Use: No Allergies-Medications (Allergen,Severity, Reaction): Coded Allergies: No Known Allergies (Verified Allergy, Unknown, 01/02/18) Reported Meds & Prescriptions Reported Meds & Active Scripts Active Prednisone 10 Mg Tab 10 Mg PO DIRECTED Prednisone 20 mg twice daily for 3 days, then prednisone 10 mg twice daily for 3 days then prednisone 10 mg daily for 3 days Furosemide 20 Mg Tab 20 Mg PO DAILY 30 Days Lisinopril 5 Mg Tab 2.5 Mg PO DAILY 30 Days Coreg (Carvedilol) 3.125 Mg Tab 3.125 Mg PO Q12HR Benzonatate 100 Mg Cap 100 Mg PO TID PRN Meclizine (Meclizine HCl) 25 Mg Tab 25 Mg PO TID PRN Ventolin Hfa 18 GM Inh (Albuterol Sulfate) 90 Mcg/Act Aer 2 Puff INH Q6H PRN [Budeson-Formot 160-4.5 Mcg Inh] 60 PUFF Aero 2 Puff INH Q12HR Reported Vitamin D3 (Cholecalciferol) 1,000 Unit Tab 1,000 Units PO DAILY Aspirin Low Dose (Aspirin) 81 Mg Chew 81 Mg PO DAILY Vesicare (Solifenacin) 5 Mg Tab 5 Mg PO DAILY Review of Systems Except as stated in HPI: all other systems reviewed are Neg Physical Exam Narrative GENERAL: Alert oriented 3 no acute distress SKIN: Focused skin assessment warm/dry. HEAD: Atraumatic. Normocephalic. EYES: Pupils equal and round. No scleral icterus. No injection or drainage. ENT: No nasal bleeding or discharge. Mucous membranes pink and moist. NECK: Trachea midline. No JVD. CARDIOVASCULAR: Regular rate and rhythm. No murmur appreciated. RESPIRATORY: No accessory muscle use. Clear to auscultation. Breath sounds equal bilaterally. GASTROINTESTINAL: Abdomen soft, non-tender, nondistended. Hepatic and splenic margins not palpable. MUSCULOSKELETAL: Mild tenderness on palpation of the left lower rib cage, no bruises or open wounds. No obvious deformities. No clubbing. No cyanosis. No edema. NEUROLOGICAL: Awake and alert. No obvious cranial nerve deficits. Motor grossly within normal limits. Normal speech. PSYCHIATRIC: Appropriate mood and affect; insight and judgment normal. Data Data Last Documented VS Vital Signs Date Time Temp Pulse Resp B/P (MAP) Pulse Ox O2 Delivery O2 Flow Rate FiO2 01/02/18 11:26 58 16 116/65 (82) 96 Room Air 01/02/18 10:[address] Abd/Pel W/O Iv Contrast (01/02/18 ) Complete Blood Count With Diff (01/02/18 10:15) Comprehensive Metabolic Panel (01/02/18 10:15) Urinalysis - C+S If Indicated (01/02/18 10:15) Chest, Single Ap (01/02/18 ) Labs Laboratory Tests Test 01/02/18 10:30 01/02/18 11:25 White Blood Count 6.4 TH/MM3 Red Blood Count 3.36 MIL/MM3 Hemoglobin 10.6 GM/DL Hematocrit 31.4 % Mean Corpuscular Volume 93.4 FL Mean Corpuscular Hemoglobin 31.7 PG Mean Corpuscular Hemoglobin Concent 33.9 % Red Cell Distribution Width 14.3 % Platelet Count 160 TH/MM3 Mean Platelet Volume 9.9 FL Neutrophils (%) (Auto) 59.8 % Lymphocytes (%) (Auto) 20.0 % Monocytes (%) (Auto) 7.3 % Eosinophils (%) (Auto) 12.0 % Basophils (%) (Auto) 0.9 % Neutrophils # (Auto) 3.7 TH/MM3 Lymphocytes # (Auto) 1.3 TH/MM3 Monocytes # (Auto) 0.5 TH/MM3 Eosinophils # (Auto) 0.8 TH/MM3 Basophils # (Auto) 0.1 TH/MM3 CBC Comment DIFF FINAL Differential Comment Blood Urea Nitrogen 34 MG/DL Creatinine 1.20 MG/DL Random Glucose 82 MG/DL Total Protein 6.2 GM/DL Albumin 3.2 GM/DL Calcium Level 8.7 MG/DL Alkaline Phosphatase 63 U/L Aspartate Amino Transf (AST/SGOT) 25 U/L Alanine Aminotransferase (ALT/SGPT) 14 U/L Total Bilirubin 0.3 MG/DL Sodium Level 143 MEQ/L Potassium Level 4.9 MEQ/L Chloride Level 106 MEQ/L Carbon Dioxide Level 30.2 MEQ/L Anion Gap 7 MEQ/L Estimat Glomerular Filtration Rate 42 ML/MIN Urine Collection Type CLEAN CATCH Urine Color YELLOW Urine Turbidity CLEAR Urine pH 5.5 Urine Specific [place] 1.015 Urine Protein NEG mg/dL Urine Glucose (UA) NEG mg/dL Urine Ketones NEG mg/dL Urine Occult Blood SMALL Urine Nitrite NEG Urine Bilirubin NEG Urine Urobilinogen 0.2 MG/DL Urine Leukocyte Esterase TRACE Urine RBC 4-9 /hpf Urine WBC 0-2 /hpf Urine WBC Clumps Urine Squamous Epithelial Cells 0-5 /hpf Urine Renal Epithelial Cells 0-5 /hpf Urine Hyaline Casts 0-2 /lpf Microscopic Urinalysis Comment CULT NOT INDICATED MDM Medical Decision Making Medical Screen Exam Complete: Yes Emergency Medical Condition: Yes Differential Diagnosis Fall, splenic laceration. Narrative Course This is an 87-year-old female presents to the ER complaining of left rib cage pain. She fell at home, fall was mechanical, CT scan shows left, rib fracture spoke with the daughter and patient was visiting her from [facility] and patient is ambulatory with no restrictions. Patient is no acute distress and saturating well on room air. Does not appear in pain right now but I will give her prescription for EC-Naprosyn. Patient is stable to be discharged home in day recommend that she follow-up with the primary care physician. Last 24 hours Impressions Chest X-Ray 01/02/18 0000 Signed Impressions: Service Date/Time: Tuesday, January 02, 2018 10:49 - CONCLUSION: 1. Chronic interstitial changes. 2. No pneumothorax identified. Amador Mooney MD Abdomen/Pelvis CT 01/02/18 0000 Signed Impressions: Service Date/Time: Tuesday, January 02, 2018 10:41 - CONCLUSION: 1. Relatively nondisplaced left lower lateral rib fracture without pneumothorax or pleural effusion. No acute traumatic injury identified within the abdomen or pelvis. 2. Multiple nonobstructing renal calculi as above. 3. Calcified gallstone in gallbladder. 4. Mild constipation. Corey Trejo MD Diagnosis Primary Impression: Left rib fracture Qualified Codes: S22.32XA - Fracture of one rib, left side, initial encounter for closed fracture Scripts Naproxen (EC-Naprosyn) 375 Mg Tabdr 375 MG PO BID, #30 TAB 0 Refills Prov: Cory Lawrence MD 01/02/18 Disposition: 01 DISCHARGE HOME Condition: Stable Cory Lawrence MD Jan 02, 2018 12:06
[2018-01-02] MEDS ORDERED: NAPROXEN 500 MG TAB PO ONE (12:45)
[2018-01-02] MEDS ORDERED: NAPROXEN 375 MG TAB PO ONE (12:45)
[2018-01-02 12:50] VITALS: BP 117/64; PULSE 60; RESP 12; O2SAT 97
== END 2018-01-02 12:52 | disposition home or self-care (01) ==
LOC: PHED 09:52
DX: S22.32XA Fracture of one rib, left side, initial encounter for closed fracture (principal); H91.90 Unspecified hearing loss, unspecified ear; I10 Essential (primary) hypertension; J44.9 Chronic obstructive pulmonary disease, unspecified; W01.0XXA Fall on same level from slipping, tripping and stumbling without subsequent striking against object, initial encounter
CPT/HCPCS: 71045; 74176; 80053; 81001; 85025; 99284